=== PATIENT | male | born 1965 | race Caucasian/White ===

== ENCOUNTER 2017-10-09 20:11 | Observation (INO) | payer BC, OTHER ==
[2017-10-09] MEDS ORDERED: Sodium Chloride 0.9% 2.5 ML Syringe FLUSH PRN (20:19)
[2017-10-09] MEDS ORDERED: Aspirin 81 MG Tab.Chew PO ONE (20:19)
[2017-10-09] MEDS ORDERED: Sodium Chloride 0.9% 10 ML Syringe FLUSH PRN (20:19)
--- NOTE | 2017-10-09 20:22 | EDM.PDOC ---
ED HPI GENERAL MEDICAL PROBLEM - General Chief Complaint: Chest Pain Stated Complaint: CHEST PAIN Time Seen by Provider: 10/09/17 20:13 - History of Present Illness INITIAL COMMENTS - FREE TEXT/NARRATIVE: HISTORY AND PHYSICAL: History of present illness: The patient is a 52-year-old male with no stated cardiac or pulmonary disease and presents with complaints of left midsternal chest discomfort/ache and shortness of breath for the last 2 days. The patient says that it has been on and off yesterday and was more consistent today which is why he came. The patient works in the [employer] and says he was much more short of breath than usual with any activity and started having this chest discomfort with it. At its worse he rated the discomfort as a 7/10 and currently in the ED it as a 4/ 10. The pain radiates to his mid back but does not go down his arm or to his jaw. There is no nausea or abdominal pain or diaphoresis associated with it. He doesn't get lightheaded or dizzy. The patient says that he was able to sleep last night relatively well and did not wake up with the chest pain or shortness of breath. Patient has a history of tobacco use and quit 2 years ago. Patient has no significant family history and no drug history. Patient has no leg pain or swelling and says that he does activities in the oil [employer] all the time without chest pain or shortness of breath and this is all new. He has no upper respiratory complaints such as runny nose or cough. He's been eating and drinking normally. Patient took some Motrin earlier this morning but no other medications prior to coming here. Patient says he does do a lot of sitting with his job but has not noticed any leg swelling. Review of systems: As per history of present illness and below otherwise all systems reviewed and negative. Past medical history: As per history of present illness and as reviewed below otherwise noncontributory. Surgical history: As per history of present illness and as reviewed below otherwise noncontributory. Social history: No reported history of drug or alcohol abuse. Family history: As per history of present illness and as reviewed below otherwise noncontributory. Physical exam: Gen.: Well-developed well-nourished man nontoxic and speaking clearly and easily in the ED. Vital signs have been reviewed by me HEENT: Atraumatic, normocephalic, pupils reactive, negative for conjunctival pallor or scleral icterus, mucous membranes moist, throat clear, neck supple, nontender, trachea midline. Lungs: Clear to auscultation, breath sounds equal bilaterally, chest nontender. Heart: S1S2, regular, negative for clicks, rubs, or JVD. Abdomen: Soft, nondistended, nontender. Negative for masses or hepatosplenomegaly. NABS Pelvis: Stable nontender. Genitourinary: Deferred. Rectal: Deferred. Extremities: Atraumatic, negative for cords or calf pain. Neurovascular unremarkable. No pedal edema or leg asymmetry Neuro: Awake, alert, oriented. Cranial nerves II through XII unremarkable. Cerebellum unremarkable. Motor and sensory unremarkable throughout. Exam nonfocal. Diagnostics: EKG chest x-ray CBC CMP lipase INR troponin d-dimer Therapeutics: IV O2 monitor sublingual nitroglycerin and aspirin Nitropaste Toradol After 3 sublingual nitroglycerin the patient says that the chest pain is pretty much gone but he still has some back ache which comes and goes. His d-dimer is positive so we will proceed to do a CTA of the chest to rule out PE as well as dissection. We will place Nitropaste and give Toradol for the back pain. 2125: Case was discussed with Dr. Schmitt who was aware of this patient and that he will be going for CTA of the chest. He still accepts the patient for observation admission pending the result of that study. 2139: Dr. Schmitt has seen the patient and feels that he is wheezing now and has ordered some meds for that. CTA of the chest reveals no evidence of PE or dissection and these results of been conveyed to the patient. We'll transfer to the floor. Impression: Chest pain Definitive disposition and diagnosis as appropriate pending reevaluation and review of above. chest Pain Score (Numeric/FACES): 3 upper back Pain Score (Numeric/FACES): 7 - Related Data Allergies Allergy/AdvReac Type Severity Reaction Status Date / Time No Known Allergies Allergy Verified 10/09/17 20:19 Home Meds: Home Meds . [No Known Home Meds] 10/09/17 [History] ED ROS GENERAL - Review of Systems Review Of Systems: ROS reveals no pertinent complaints other than HPI. ED EXAM, GENERAL - Physical Exam Exam: See Below (See dictation) Course - Vital Signs Last Recorded V/S: Last Vital Signs Temp 36.3 C 10/09/17 20:11 Pulse 86 10/09/17 22:45 Resp 16 10/09/17 22:45 BP 99/68 10/09/17 22:45 Pulse Ox 96 10/09/17 22:45 - Orders/Labs/Meds Orders: Active Orders 24 hr Category Date Time Status Patient Status [ADT] Routine ADT 10/09/17 21:57 Active Antiembolic Devices [RC] PER UNIT ROUTINE Care 10/09/17 21:59 Active Cardiac Monitoring [RC] . DIRECTED Care 10/09/17 20:18 Active EKG Documentation Completion [RC] STAT Care 10/09/17 20:18 Active Oxygen Therapy [RC] PRN Care 10/09/17 21:57 Active Oxygen Therapy, ED [RC] ASDIRECTED Care 10/09/17 20:18 Active Pulse Oximetry [RC] ASDIRECTED Care 10/09/17 20:18 Active RT Aerosol Therapy [RC] ASDIRECTED Care 10/09/17 21:42 Active RT Aerosol Therapy [RC] ASDIRECTED Care 10/09/17 22:00 Active VTE/DVT Education [RC] PER UNIT ROUTINE Care 10/09/17 21:57 Active Vital Signs [RC] Q4H Care 10/09/17 21:57 Active Regular Diet [DIET] Diet 10/09/17 Dinner Active Ang Chest [CT] Stat Exams 10/09/17 21:12 Taken Chest 1V Frontal [CR] Stat Exams 10/09/17 20:19 Taken LIPID PANEL [CHEM] Routine Lab 10/10/17 03:00 Ordered TROPONIN I [CHEM] Q6H Lab 10/10/17 03:00 Ordered TROPONIN I [CHEM] Q6H Lab 10/10/17 09:00 Ordered Acetaminophen [Tylenol] Med 10/09/17 21:57 Active 650 mg PO Q4H PRN Albuterol/Ipratropium [DuoNeb 3.0-0.5 MG/3 ML] Med 10/09/17 22:00 Active 3 ml NEB Q4HRRT Aspirin Med 10/10/17 09:00 Active 81 mg PO DAILY Morphine Med 10/09/17 21:57 Active 4 mg IVPUSH Q2H PRN Sodium Chloride 0.9% [Saline Flush] Med 10/09/17 20:19 Active 10 ml FLUSH ASDIRECTED PRN Sodium Chloride 0.9% [Saline Flush] Med 10/09/17 20:19 Active 2.5 ml FLUSH ASDIRECTED PRN methylPREDNISolone Sod Succ [Solu-MEDROL] Med 10/10/17 04:00 Active 125 mg IVPUSH Q6H Saline Lock Insert [OM.PC] Stat Oth 10/09/17 20:18 Ordered Sequential Compression Device [OM.PC] Per Unit Routine Oth 10/09/17 21:58 Ordered Resuscitation Status Routine Resus Stat 10/09/17 21:57 Ordered Medication Orders Acetaminophen (Tylenol) 650 mg PO Q4H PRN PRN Reason: Pain (Mild 1-3)/fever Albuterol/Ipratropium (Duoneb 3.0-0.5 Mg/3 Ml) 3 ml NEB Q4HRRT INDIRA Last Admin: 10/09/17 22:15 Dose: 3 ml Aspirin (Aspirin) 81 mg PO DAILY INDIRA Methylprednisolone Sodium Succinate (Solu-Medrol) 125 mg IVPUSH Q6H INDIRA Morphine Sulfate (Morphine) 4 mg IVPUSH Q2H PRN PRN Reason: Pain (severe 7-10) Stop: 10/10/17 21:59 Sodium Chloride (Saline Flush) 10 ml FLUSH ASDIRECTED PRN PRN Reason: Keep Vein Open Sodium Chloride (Saline Flush) 2.5 ml FLUSH ASDIRECTED PRN PRN Reason: Keep Vein Open Labs: Laboratory Tests 10/09/17 10/09/17 10/09/17 Range/Units 20:38 20:38 20:38 WBC 7.81 (4.0-11.0) K/uL RBC 4.43 L (4.50-5.90) M/uL Hgb 15.1 (13.0-17.0) g/dL Hct 41.6 (38.0-50.0) % MCV 93.9 (80.0-98.0) fL MCH 34.1 H (27.0-32.0) pg MCHC 36.3 (31.0-37.0) g/dL RDW Std Deviation 44.1 (28.0-62.0) fl RDW Coeff of Jessie 13 (11.0-15.0) % Plt Count 283 (150-400) K/uL MPV 9.10 (7.40-12.00) fL Neut % (Auto) 53.6 (48.0-80.0) % Lymph % (Auto) 32.4 (16.0-40.0) % Reeves % (Auto) 10.2 (0.0-15.0) % Eos % (Auto) 3.3 (0.0-7.0) % Baso % (Auto) 0.5 (0.0-1.5) % Neut # (Auto) 4.2 (1.4-5.7) K/uL Lymph # (Auto) 2.5 H (0.6-2.4) K/uL Reeves # (Auto) 0.8 (0.0-0.8) K/uL Eos # (Auto) 0.3 (0.0-0.7) K/uL Baso # (Auto) 0.0 (0.0-0.1) K/uL Nucleated RBC % 0.0 /100WBC Nucleated RBCs # 0 K/uL INR 0.96 (0.86-1.11) D-Dimer, Quantitative (0.0-0.52) mg/LFEU Sodium 140 (136-146) mmol/L Potassium 3.7 (3.5-5.1) mmol/L Chloride 109 (98-110) mmol/L Carbon Dioxide 20 L (21-31) mmol/L BUN 14 (6.0-23.0) mg/dL Creatinine 1.0 (0.6-1.5) mg/dL Est Cr Clr Drug Dosing 82.65 mL/min Estimated GFR (MDRD) > 60.0 ml/min Glucose 106 (60-110) mg/dL Calcium 8.7 L (8.8-10.8) mg/dL Total Bilirubin 0.3 (0.1-1.5) mg/dL AST 27 (5-40) IU/L ALT 35 (8-54) IU/L Alkaline Phosphatase 85 (40-150) Troponin I < 0.10 (0.0-0.29) NG/ML Total Protein 6.7 (6.0-8.0) g/dL Albumin 4.0 (3.5-5.0) g/dL Globulin 2.7 (2.0-3.5) g/dL Albumin/Globulin Ratio 1.5 (1.3-2.8) Lipase 19 (7-80) U/L 10/09/17 Range/Units 20:38 WBC (4.0-11.0) K/uL RBC (4.50-5.90) M/uL Hgb (13.0-17.0) g/dL Hct (38.0-50.0) % MCV (80.0-98.0) fL MCH (27.0-32.0) pg MCHC (31.0-37.0) g/dL RDW Std Deviation (28.0-62.0) fl RDW Coeff of Jessie (11.0-15.0) % Plt Count (150-400) K/uL MPV (7.40-12.00) fL Neut % (Auto) (48.0-80.0) % Lymph % (Auto) (16.0-40.0) % Reeves % (Auto) (0.0-15.0) % Eos % (Auto) (0.0-7.0) % Baso % (Auto) (0.0-1.5) % Neut # (Auto) (1.4-5.7) K/uL Lymph # (Auto) (0.6-2.4) K/uL Reeves # (Auto) (0.0-0.8) K/uL Eos # (Auto) (0.0-0.7) K/uL Baso # (Auto) (0.0-0.1) K/uL Nucleated RBC % /100WBC Nucleated RBCs # K/uL INR (0.86-1.11) D-Dimer, Quantitative 0.59 H (0.0-0.52) mg/LFEU Sodium (136-146) mmol/L Potassium (3.5-5.1) mmol/L Chloride (98-110) mmol/L Carbon Dioxide (21-31) mmol/L BUN (6.0-23.0) mg/dL Creatinine (0.6-1.5) mg/dL Est Cr Clr Drug Dosing mL/min Estimated GFR (MDRD) ml/min Glucose (60-110) mg/dL Calcium (8.8-10.8) mg/dL Total Bilirubin (0.1-1.5) mg/dL AST (5-40) IU/L ALT (8-54) IU/L Alkaline Phosphatase (40-150) Troponin I (0.0-0.29) NG/ML Total Protein (6.0-8.0) g/dL Albumin (3.5-5.0) g/dL Globulin (2.0-3.5) g/dL Albumin/Globulin Ratio (1.3-2.8) Lipase (7-80) U/L Meds: Medications Generic Name Dose Route Start Last Admin Trade Name Sean PRN Reason Stop Dose Admin Acetaminophen 650 mg 10/09/17 21:57 Tylenol PO Q4H PRN Pain (Mild 1-3)/fever Albuterol/Ipratropium 3 ml 10/09/17 22:00 10/09/17 22:15 Duoneb 3.0-0.5 Mg/3 Ml NEB 3 ml Q4HRRT INDIRA Administration Aspirin 81 mg 10/10/17 09:00 Aspirin PO DAILY INDIRA Methylprednisolone Sodium Succinate 125 mg 10/10/17 04:00 Solu-Medrol IVPUSH Q6H INDIRA Morphine Sulfate 4 mg 10/09/17 21:57 Morphine IVPUSH 10/10/17 21:59 Q2H PRN Pain (severe 7-10) Sodium Chloride 10 ml 10/09/17 20:19 Saline Flush FLUSH ASDIRECTED PRN Keep Vein Open Sodium Chloride 2.5 ml 10/09/17 20:19 Saline Flush FLUSH ASDIRECTED PRN Keep Vein Open Discontinued Medications Generic Name Dose Route Start Last Admin Trade Name Sean PRN Reason Stop Dose Admin Albuterol/Ipratropium 3 ml 10/09/17 21:42 10/09/17 22:32 Duoneb 3.0-0.5 Mg/3 Ml NEB 10/09/17 21:43 Not Given ONETIME ONE Aspirin 324 mg 10/09/17 20:19 10/09/17 20:42 Aspirin PO 10/09/17 20:20 324 mg ONETIME ONE Administration Sodium Chloride 1,000 mls @ 999 mls/hr 10/09/17 20:43 10/09/17 20:43 Normal Saline IV 999 mls/hr ASDIRECTED INDIRA Administration Sodium Chloride 1,000 mls @ 999 mls/hr 10/09/17 21:45 10/09/17 21:34 Normal Saline IV 999 mls/hr ASDIRECTED INDIRA Administration Ketorolac Tromethamine 30 mg 10/09/17 21:12 10/09/17 21:32 Toradol IVPUSH 10/09/17 21:13 30 mg ONETIME ONE Administration Methylprednisolone Sodium Succinate 125 mg 10/09/17 21:42 10/09/17 22:32 Solu-Medrol IVPUSH 10/09/17 21:43 125 mg ONETIME ONE Administration Nitroglycerin 0.4 mg 10/09/17 20:30 10/09/17 20:56 Nitrostat SL 10/09/17 20:41 0.4 mg Q5M INDIRA Administration Nitroglycerin 0.5 gm 10/09/17 21:12 10/09/17 21:33 Nitro-Bid 2% TOP 10/09/17 21:13 0.5 gm ONETIME ONE Administration Departure - Departure Time of Disposition: 23:10 Disposition: Refer to Observation Condition: Good Clinical Impression: Chest pain Qualifiers: Chest pain type: unspecified Qualified Code(s): R07.9 - Chest pain, unspecified - Discharge Information Forms: ED Department Discharge - My Orders Last 24 Hours: My Active Orders 10/09/17 20:18 Cardiac Monitoring [RC] . DIRECTED EKG Documentation Completion [RC] STAT Oxygen Therapy, ED [RC] ASDIRECTED Pulse Oximetry [RC] ASDIRECTED Saline Lock Insert [OM.PC] Stat 10/09/17 20:19 Chest 1V Frontal [CR] Stat Sodium Chloride 0.9% [Saline Flush] 10 ml FLUSH ASDIRECTED PRN Sodium Chloride 0.9% [Saline Flush] 2.5 ml FLUSH ASDIRECTED PRN 10/09/17 21:12 Ang Chest [CT] Stat - Assessment/Plan Last 24 Hours: My Active Orders 10/09/17 20:18 Cardiac Monitoring [RC] . DIRECTED EKG Documentation Completion [RC] STAT Oxygen Therapy, ED [RC] ASDIRECTED Pulse Oximetry [RC] ASDIRECTED Saline Lock Insert [OM.PC] Stat 10/09/17 20:19 Chest 1V Frontal [CR] Stat Sodium Chloride 0.9% [Saline Flush] 10 ml FLUSH ASDIRECTED PRN Sodium Chloride 0.9% [Saline Flush] 2.5 ml FLUSH ASDIRECTED PRN 10/09/17 21:12 Ang Chest [CT] Stat
[2017-10-09] MEDS: Nitroglycerin 0.4 MG Tab.SL SL SCH ×3 (20:42→20:56)
[2017-10-09] MEDS ORDERED: Sodium Chloride 0.9% 1,000 ML IV SCH ×2 (20:43→21:45)
[2017-10-09 21:11] LABS: CHLORIDE,CL 109 mmol/L (98-110); SODIUM,NA 140 mmol/L (136-146)
[2017-10-09] MEDS ORDERED: Ketorolac 30 MG/ML SDV IVPUSH ONE (21:12)
[2017-10-09] MEDS ORDERED: Nitroglycerin 2% Oint 1 GM UD Packet TOP ONE (21:12)
[2017-10-09] MEDS ORDERED: Albuterol/Ipratropium 3.0-0.5 MG/3 ML Neb Soln NEB ONE (21:42)
[2017-10-09] MEDS ORDERED: methylPREDNISolone Sodium Succinate 125 MG/2 ML SDV IVPUSH ONE (21:42)
--- NOTE | 2017-10-09 21:54 | PCM.HP ---
H&P History of Present Illness - General Date of Service: 10/09/17 Source of Information: Patient, Provider - History of Present Illness Initial Comments - Free Text/Narative: He presented to the ED today with a history of chest pain and dyspnea since yesterday. He states that he occasionally has dyspnea in the past. He quit smoking cigarettes two years ago but does use "vapes" on a daily basis. He has no chest pain now. chest Pain Score (Numeric/FACES): 3 upper back Pain Score (Numeric/FACES): 7 - Related Data Allergies/Adverse Reactions: Allergies Allergy/AdvReac Type Severity Reaction Status Date / Time No Known Allergies Allergy Verified 10/09/17 20:19 Home Medications: Home Meds . [No Known Home Meds] 10/09/17 [History] Past Medical History - Past Health History Medical/Surgical History: Denies Medical/Surgical History HEENT History: Denies: Cataract, Glaucoma, Macular Degeneration, Sinusitis Cardiovascular History: Denies: Afib, Aneurysm, Angina, CAD, Cardiomyopathy, Heart Failure, Heart Murmur, High Cholesterol, Hypertension, NC Respiratory History: Reports: Other (See Below) (no known prior history of asthma or copd). Denies: COPD, Pulmonary Fibrosis Gastrointestinal History: Denies: Cirrhosis Genitourinary History: Denies: Chronic Renal Insuffiency Musculoskeletal History: Denies: Amputation, Connective Tissue Disease, Fibromyalgia, Gout, Muscular Dystrophy, RA, SLE Neurological History: Denies: Cerebral Palsy, CVA, MS, Parkinson's, Reflex Sympathetic Dystrophy, Seizure, Speech Problems, TIA Psychiatric History: Denies: Addiction, Anxiety, Dementia, Depression, Hallucinations, Schizophrenia Endocrine/Metabolic History: Denies: Huerfano's Disease, Diabetes, Type I, Diabetes, Type II, Hyperthyroidism Hematologic History: Denies: Anemia, Anticoagulation Therapy, Bleeding Disorder , Hemochromatosis Immunologic History: Denies: AIDS, HIV, Immunosuppression Oncologic (Cancer) History: Reports: None Dermatologic History: Denies: Angiodema, Cellulitis, Melanoma - Past Surgical History Head Surgeries/Procedures: Reports: None Social & Family History - Family History Family Medical History: Noncontributory - Tobacco Use Smoking Status *Q: Former Smoker Other Tobacco Use Within Last Twelve Months: he quit smoking two years ago - Caffeine Use Caffeine Use: Reports: Coffee - Alcohol Use Alcohol Use Comment: no regular alcohol use - Recreational Drug Use Recreational Drug Use: No H&P Review of Systems - Review of Systems: Review Of Systems: See Below General: Denies: Fever, Chills HEENT: Denies: Sinus Congestion, Sore Throat, Vertigo Pulmonary: Reports: Shortness of Breath, Wheezing, Cough. Denies: Sputum, Hemoptysis Cardiovascular: Reports: Chest Pain. Denies: Edema, Syncope, Blood Pressure Problem Gastrointestinal: Denies: Abdominal Pain, Black Stool, Bloody Stool, Hematochezia, Melena, Nausea, Stool Incontinence, Vomiting Genitourinary: Denies: Dysuria, Frequency, Burning, Pain, Hematuria Musculoskeletal: Denies: Neck Pain, Muscle Stiffness Skin: Denies: Cyanosis Psychiatric: Denies: Confusion, Depression Hematologic/Lymphatic: Denies: Anemia Exam - Exam Exam: See Below - Vital Signs Vital Signs: Last Vital Signs Temp 97.3 F 10/09/17 20:11 Pulse 97 10/09/17 20:55 Resp 18 10/09/17 20:55 BP 104/71 10/09/17 20:56 Pulse Ox 96 10/09/17 20:55 Weight: 93.6 kg - Exam General: Alert, Oriented, Cooperative HEENT: Conjunctiva Clear, EOMI, Mucosa Moist & [place] Neck: Supple, Trachea Midline Lungs: Wheezing, Other (marked prolongation of expiration) Cardiovascular: Regular Rate, Regular Rhythm. No: Irregular Rhythm, Systolic Murmur, Diastolic Murmur GI/Abdominal Exam: Soft, Non-Tender (Male) Exam: Deferred Rectal (Males) Exam: Deferred Extremities: No: Pedal Edema Skin: Warm, Dry Neurological: Cranial Nerves Intact, Normal Speech Neuro Extensive - Motor, Sensory, Reflexes: No: Facial palsy (L), Facial Palsy ( R) - Patient Data Lab Results Last 24 hrs: Laboratory Results - last 24 hr 10/09/17 10/09/17 10/09/17 Range/Units 20:38 20:38 20:38 WBC 7.81 (4.0-11.0) K/uL RBC 4.43 L (4.50-5.90) M/uL Hgb 15.1 (13.0-17.0) g/dL Hct 41.6 (38.0-50.0) % MCV 93.9 (80.0-98.0) fL MCH 34.1 H (27.0-32.0) pg MCHC 36.3 (31.0-37.0) g/dL RDW Std Deviation 44.1 (28.0-62.0) fl RDW Coeff of Jessie 13 (11.0-15.0) % Plt Count 283 (150-400) K/uL MPV 9.10 (7.40-12.00) fL Neut % (Auto) 53.6 (48.0-80.0) % Lymph % (Auto) 32.4 (16.0-40.0) % Beaver % (Auto) 10.2 (0.0-15.0) % Eos % (Auto) 3.3 (0.0-7.0) % Baso % (Auto) 0.5 (0.0-1.5) % Neut # (Auto) 4.2 (1.4-5.7) K/uL Lymph # (Auto) 2.5 H (0.6-2.4) K/uL [place]aver # (Auto) 0.8 (0.0-0.8) K/uL Eos # (Auto) 0.3 (0.0-0.7) K/uL Baso # (Auto) 0.0 (0.0-0.1) K/uL Nucleated RBC % 0.0 /100WBC Nucleated RBCs # 0 K/uL INR 0.96 (0.86-1.11) D-Dimer, Quantitative (0.0-0.52) mg/LFEU Sodium 140 (136-146) mmol/L Potassium 3.7 (3.5-5.1) mmol/L Chloride 109 (98-110) mmol/L Carbon Dioxide 20 L (21-31) mmol/L BUN 14 (6.0-23.0) mg/dL Creatinine 1.0 (0.6-1.5) mg/dL Est Cr Clr Drug Dosing 82.65 mL/min Estimated GFR (MDRD) > 60.0 ml/min Glucose 106 (60-110) mg/dL Calcium 8.7 L (8.8-10.8) mg/dL Total Bilirubin 0.3 (0.1-1.5) mg/dL AST 27 (5-40) IU/L ALT 35 (8-54) IU/L Alkaline Phosphatase 85 (40-150) Troponin I < 0.10 (0.0-0.29) NG/ML Total Protein 6.7 (6.0-8.0) g/dL Albumin 4.0 (3.5-5.0) g/dL Globulin 2.7 (2.0-3.5) g/dL Albumin/Globulin Ratio 1.5 (1.3-2.8) Lipase 19 (7-80) U/L 10/09/ Range/Units 20:38 WBC (4.0-11.0) K/uL RBC (4.50-5.90) M/uL Hgb (13.0-17.0) g/dL Hct (38.0-50.0) % MCV (80.0-98.0) fL MCH (27.0-32.0) pg MCHC (31.0-37.0) g/dL RDW Std Deviation (28.0-62.0) fl RDW Coeff of Jessie (11.0-15.0) % Plt Count (150-400) K/uL MPV (7.40-12.00) fL Neut % (Auto) (48.0-80.0) % Lymph % (Auto) (16.0-40.0) % Beaver % (Auto) (0.0-15.0) % Eos % (Auto) (0.0-7.0) % Baso % (Auto) (0.0-1.5) % Neut # (Auto) (1.4-5.7) K/uL Lymph # (Auto) (0.6-2.4) K/uL Beaver # (Auto) (0.0-0.8) K/uL Eos # (Auto) (0.0-0.7) K/uL Baso # (Auto) (0.0-0.1) K/uL Nucleated RBC % /100WBC Nucleated RBCs # K/uL INR (0.86-1.11) D-Dimer, Quantitative 0.59 H (0.0-0.52) mg/LFEU Sodium (136-146) mmol/L Potassium (3.5-5.1) mmol/L Chloride (98-110) mmol/L Carbon Dioxide (21-31) mmol/L BUN (6.0-23.0) mg/dL Creatinine (0.6-1.5) mg/dL Est Cr Clr Drug Dosing mL/min Estimated GFR (MDRD) ml/min Glucose (60-110) mg/dL Calcium (8.8-10.8) mg/dL Total Bilirubin (0.1-1.5) mg/dL AST (5-40) IU/L ALT (8-54) IU/L Alkaline Phosphatase (40-150) Troponin I (0.0-0.29) NG/ML Total Protein (6.0-8.0) g/dL Albumin (3.5-5.0) g/dL Globulin (2.0-3.5) g/dL Albumin/Globulin Ratio (1.3-2.8) Lipase (7-80) U/L Result Diagrams: 10/09/17 20:38 10/09/17 20:38 *Q Meaningful Use (ADM) - VTE *Q VTE Criteria *Q: - Stroke *Q Stroke Criteria *Q: - AMI *Q AMI Criteria *Q: - Problem List (1) Bronchospasm, acute SNOMED Code(s): 56981071774283 ICD Code: J98.01 - ACUTE BRONCHOSPASM Status: Acute (2) Chest pain SNOMED Code(s): 87536262 ICD Code: R07.9 - CHEST PAIN, UNSPECIFIED Status: Acute Problem List Initiated/Reviewed/Updated: Yes Orders Last 24hrs: Active Orders 24 hr Category Date Time Status Cardiac Monitoring [RC] . DIRECTED Care 10/09/17 20:18 Active EKG Documentation Completion [RC] STAT Care 10/09/17 20:18 Active Oxygen Therapy, ED [RC] ASDIRECTED Care 10/09/17 20:18 Active Pulse Oximetry [RC] ASDIRECTED Care 10/09/17 20:18 Active RT Aerosol Therapy [RC] ASDIRECTED Care 10/09/17 21:42 Active Ang Chest [CT] Stat Exams 10/09/17 21:12 Ordered Chest 1V Frontal [CR] Stat Exams 10/09/17 20:19 Taken Sodium Chloride 0.9% [Normal Saline] 1,000 ml Med 10/09/17 20:43 Active IV ASDIRECTED Sodium Chloride 0.9% [Normal Saline] 1,000 ml Med 10/09/17 21:45 Active IV ASDIRECTED Sodium Chloride 0.9% [Saline Flush] Med 10/09/17 20:19 Active 10 ml FLUSH ASDIRECTED PRN Sodium Chloride 0.9% [Saline Flush] Med 10/09/17 20:19 Active 2.5 ml FLUSH ASDIRECTED PRN Saline Lock Insert [OM.PC] Stat Oth 10/09/17 20:18 Ordered Medication Orders Sodium Chloride (Normal Saline) 1,000 mls @ 999 mls/hr IV ASDIRECTED INDIRA Last Admin: 10/09/17 20:43 Dose: 999 mls/hr Sodium Chloride (Normal Saline) 1,000 mls @ 999 mls/hr IV ASDIRECTED INDIRA Last Admin: 10/09/17 21:34 Dose: 999 mls/hr Sodium Chloride (Saline Flush) 10 ml FLUSH ASDIRECTED PRN PRN Reason: Keep Vein Open Sodium Chloride (Saline Flush) 2.5 ml FLUSH ASDIRECTED PRN PRN Reason: Keep Vein Open Assessment/Plan Comment:: 10/09/2017 His CXR is normal his EKG shows no evidence of acute ischemia I suspect that his chest pain is related to bronchospasm and underlying asthma will observe and get troponins. See orders. anticipate discharge tomorrow. Dariel Schmitt MD
[2017-10-09] MEDS ORDERED: Morphine 10 MG/ML Syringe IVPUSH PRN (21:57)
[2017-10-09] MEDS ORDERED: Acetaminophen 325 MG Tab PO PRN (21:57)
[2017-10-09] MEDS: Albuterol/Ipratropium 3.0-0.5 MG/3 ML Neb Soln NEB SCH (22:15)
[2017-10-09] MEDS ORDERED: Iopamidol 755 MG/ML 500 ML Multipack Bottle IVPUSH STA (23:37)
[2017-10-10] MEDS: Albuterol/Ipratropium 3.0-0.5 MG/3 ML Neb Soln NEB SCH ×3 (02:44→10:23)
[2017-10-10] MEDS: methylPREDNISolone Sodium Succinate 125 MG/2 ML SDV IVPUSH SCH ×2 (04:52→09:33)
[2017-10-10] MEDS ORDERED: Aspirin 81 MG Tab.Chew PO SCH (09:00)
--- NOTE | 2017-10-10 11:31 | PCM.DCSUM1 ---
Discharge Summary - Hospital Course Free Text/Narrative:: Admission date: 10/09/2017 Discharge date: 10/10/2017 Admission diagnosis: #1. Bronchospasm #2. ACS rule out #3. Chest pain #4. History of vaping Discharge diagnosis: #1. Bronchospasm - symptoms improved #2. ACS rule out - no ACS #3. chest pain - resolved #4. History of vaping Hospital course: 52 year old male with a history of asthma and smoking that presented to the ER on 10/09 evening complaining of dull chest pain and difficulty breathing. He was admitted for an ACS rule out and was placed in observation. The patient did well overnight with no further episodes. His telemetry was unremarkable, troponin x3 was negative. It was believed givent he clinical picture that this was likely a bronchospasm rather than a cardiac etiology. DuoNebs as per the patient helped a lot with his breathing. He told me that he doesnt take any medications at home. He feels that this episode occured secondary to vaping. He tells me that hes going to quit that as well now. He started this to quit cigarettes which he did 2 years ago. He tells me that hes going back to [place] where hes from so he'll follow up with a PCP there. Regardless, an appointment was made for him here if he chooses to stay. Follow up: Dr. Guadalupe, 1 week Medications: Prednisone 40mg PO x5 days, 0 refills Return precautions as discussed - Discharge Data Discharge Date: 10/10/17 Discharge Disposition: Home, Self-Care 01 Condition: Good - Patient Instructions Diet: Regular Diet as Tolerated Driving: May Drive Today Showering/Bathing: May Shower Notify Provider of: Fever, Increased Pain, Nausea and/or Vomiting - Discharge Plan Prescriptions/Med Rec: Prednisone [IMW: predniSONE] 40 mg PO WITHBREAKFAST 5 Days #5 tab Home Medications: Home Meds Prednisone [IMW: predniSONE] 40 mg PO WITHBREAKFAST 5 Days #5 tab 10/10/17 [Rx] Patient Handouts: Bronchospasm, Adult, [id number], Asthma, Adult, Easy-to- Read, Prednisone tablets - Discharge Summary/Plan Comment DC Time >30 min.: No Discharge Summary/Plan Comment: Admission date: 10/09/2017 Discharge date: 10/10/2017 Admission diagnosis: #1. Bronchospasm #2. ACS rule out #3. Chest pain #4. History of vaping Discharge diagnosis: #1. Bronchospasm - symptoms improved #2. ACS rule out - no ACS #3. chest pain - resolved #4. History of vaping Hospital course: 52 year old male with a history of asthma and smoking that presented to the ER on 10/09 evening complaining of dull chest pain and difficulty breathing. He was admitted for an ACS rule out and was placed in observation. The patient did well overnight with no further episodes. His telemetry was unremarkable, troponin x3 was negative. It was believed givent he clinical picture that this was likely a bronchospasm rather than a cardiac etiology. DuoNebs as per the patient helped a lot with his breathing. He told me that he doesnt take any medications at home. He feels that this episode occured secondary to vaping. He tells me that hes going to quit that as well now. He started this to quit cigarettes which he did 2 years ago. He tells me that hes going back to [place] where hes from so he'll follow up with a PCP there. Regardless, an appointment was made for him here if he chooses to stay. Follow up: Dr. Guadalupe, 1 week Medications: Prednisone 40mg PO x5 days, 0 refills Return precautions as discussed - Patient Data Vitals - Most Recent: Last Vital Signs Temp 36.8 C 10/10/17 08:00 Pulse 110 H 10/10/17 08:00 Resp 16 10/10/17 08:00 BP 110/59 L 10/10/17 08:00 Pulse Ox 93 L 10/10/17 08:00 Weight - Most Recent: 91.943 kg I&O - Last 24 hours: Intake & Output 10/09/17 10/10/17 10/10/17 22:59 06:59 14:59 Intake Total 75 960 Output Total 250 500 Balance -175 460 Lab Results - Last 24 hrs: Laboratory Results - last 24 hr 10/10/17 10/10/17 Range/Units 02:56 08:53 Troponin I < 0.10 < 0.10 (0.0-0.29) NG/ML Triglycerides 46 (10-190) mg/dL Cholesterol 140 (131-240) mg/dL LDL Cholesterol, Calc 97 (60-180) mg/dL VLDL Cholesterol 9 (5-55) mg/dL HDL Cholesterol 34 L (40-80) mg/dL Cholesterol/HDL Ratio 4.1 (3.3-6.0) Med Orders - Current: Current Medications Discontinued Medications Acetaminophen (Tylenol) 650 mg PO Q4H PRN PRN Reason: Pain (Mild 1-3)/fever Albuterol/Ipratropium (Duoneb 3.0-0.5 Mg/3 Ml) 3 ml NEB ONETIME ONE Stop: 10/09/17 21:43 Last Admin: 10/09/17 22:32 Dose: Not Given Albuterol/Ipratropium (Duoneb 3.0-0.5 Mg/3 Ml) 3 ml NEB Q4HRRT [facility] Last Admin: 10/10/17 10:23 Dose: 3 ml Aspirin (Aspirin) 324 mg PO ONETIME ONE Stop: 10/09/17 20:20 Last Admin: 10/09/17 20:42 Dose: 324 mg Aspirin (Aspirin) 81 mg PO DAILY [facility] Last Admin: 10/10/17 08:25 Dose: 81 mg Sodium Chloride (Normal Saline) 1,000 mls @ 999 mls/hr IV ASDIRECTED [facility] Last Admin: 10/09/17 20:43 Dose: 999 mls/hr Sodium Chloride (Normal Saline) 1,000 mls @ 999 mls/hr IV ASDIRECTED [facility] Last Admin: 10/09/17 21:34 Dose: 999 mls/hr Iopamidol (Isovue Multipack-370 (76%)) 50 ml IVPUSH ONETIME STA Stop: 10/09/17 23:38 Ketorolac Tromethamine (Toradol) 30 mg IVPUSH ONETIME ONE Stop: 10/09/17 21:13 Last Admin: 10/09/17 21:32 Dose: 30 mg Methylprednisolone Sodium Succinate (Solu-Medrol) 125 mg IVPUSH ONETIME ONE Stop: 10/09/17 21:43 Last Admin: 10/09/17 22:32 Dose: 125 mg Methylprednisolone Sodium Succinate (Solu-Medrol) 125 mg IVPUSH Q6H [facility] Last Admin: 10/10/17 09:33 Dose: 125 mg Morphine Sulfate (Morphine) 4 mg IVPUSH Q2H PRN PRN Reason: Pain (severe 7-10) Stop: 10/10/17 21:59 Nitroglycerin (Nitrostat) 0.4 mg SL Q5M INDIRA Stop: 10/09/17 20:41 Last Admin: 10/09/17 20:56 Dose: 0.4 mg Nitroglycerin (Nitro-Bid 2%) 0.5 gm TOP ONETIME ONE Stop: 10/09/17 21:13 Last Admin: 10/09/17 21:33 Dose: 0.5 gm Sodium Chloride (Saline Flush) 10 ml FLUSH ASDIRECTED PRN PRN Reason: Keep Vein Open Sodium Chloride (Saline Flush) 2.5 ml FLUSH ASDIRECTED PRN PRN Reason: Keep Vein Open Last Admin: 10/10/17 08:26 Dose: 2.5 ml *Q Meaningful Use (DIS) - VTE *Q VTE Criteria *Q: - Stroke *Q Stroke Criteria *Q: - AMI *Q AMI Criteria *Q:
--- NOTE | 2017-10-10 14:11 | CR ---
EXAM DATE: 10/09/17 PATIENT'S AGE: 52 Patient: TORY MACKENZIE Facility: [place], [place] Site . Site : 1965 Study: XRay Chest [id number] 9:17:14 PM Ordering Physician: Valentin Villatoro Final Report: Indication: Chest pain Technique: Chest 1 view Comparison: None Findings/Impression: Cardiovascular and mediastinum: Normal cardiac size. Mild left hilar prominence could be related to vasculature. Lungs and pleural space: Lungs are clear. No sign of infiltrate or mass. No sign of pleural effusion. No pneumothorax. Bones and soft tissues: No significant findings. Dictated by Roque Hess MD @ 10/09/2017 9:44:50 PM Dictated by: Roque Hess MD @ 10/09/2017 21:44:56 (Electronic Signature) Report Signed by Proxy. [facility]
--- NOTE | 2017-10-10 14:13 | CT ---
EXAM DATE: 10/09/17 PATIENT'S AGE: 52 Patient: TORY MACKENZIE Facility: [place], [place] Site . Site : 1965 Study: CT Chest Angio [id number]/14/[id number] 10:26:42 PM Ordering Physician: Valentin Villatoro Final Report: INDICATION: Shortness of breath TECHNIQUE: CT chest pulmonary angiogram acquired with IV contrast. 100 cc Isovue 370 COMPARISON: None FINDINGS: Cardiovascular structures: Normal vascular enhancement of the pulmonary arteries , no sign of pulmonary embolism. Heart size is normal. No sign of aneurysm or dissection in the thoracic aorta. Mediastinum and treva: Bilateral hilar, paratracheal and subcarinal lymph nodes mostly being up to 1.5 centimeters. Lungs: 5 millimeter round well-circumscribed nodule right middle lobe adjacent to the fissure. Pleura and pericardium: No effusions. Chest wall and axilla: No mass or adenopathy. Bones: No significant findings. Upper abdomen: Unremarkable. IMPRESSION: No pulmonary embolism, aortic dissection, or pneumonia. 5 millimeter subpleural nodule right middle lobe. Dictated by Bridger Bolton MD @ 10/09/2017 11:08:38 PM Dictated by: Bridger Bolton MD @ 10/09/2017 23:08:50 (Electronic Signature) Report Signed by Proxy. [facility]
== END 2017-10-10 10:50 | disposition home or self-care (01) ==
LOC: MW.ED 20:11 → MW.MS 21:57
PROVIDERS: ADMIT Family Medicine; ATTEND Family Medicine
DX: J98.01 Acute bronchospasm (principal); R07.89 Other chest pain; Z87.891 Personal history of nicotine dependence
CPT/HCPCS: 36415; 71010; 71275; 80053; 80061; 83690; 84484; 85025; 85379; 85610; 93005; 94640; 96361; 96374; 96375; 96376; 99285; A9270; G0378; J1885; J2930; J7040; 99284

== ENCOUNTER 2021-08-23 19:55 | Observation (INO) | payer BC ==
[2021-08-23] MEDS ORDERED: Sodium Chloride 0.9% 2.5 ML Syringe FLUSH PRN (20:50)
[2021-08-23] MEDS ORDERED: Sodium Chloride 0.9% 10 ML Syringe FLUSH PRN (20:50)
--- NOTE | 2021-08-23 21:02 | CR ---
INDICATION: Cough and shortness of breath for 5 weeks TECHNIQUE: Chest 2 views. COMPARISON: Chest radiograph October 09, 2017 FINDINGS: Normal cardiac size. 5.2 x 3.4 cm right hilar mass with multiple pulmonary nodules in both lungs measuring up to 2.0 cm in size. Large right pleural effusion. No pneumothorax. No suspicious osseous lesion. IMPRESSION: Right hilar mass may represent a primary lung carcinoma. There are multiple pulmonary nodules throughout the lungs concerning for metastatic disease. Large right pleural effusion. Consider CT chest, abdomen, and pelvis with IV contrast for further evaluation. Dictated by Aniya Diez MD @ 08/23/2021 8:59:59 PM (Electronically Signed)
[2021-08-23 21:55] LABS: BLOOD UREA NITROGEN,BUN 14 mg/dL (7.0-18.0); GLUCOSE RANDOM 109 mg/dL (74-106); LIPASE 58 U/L (73-393)
[2021-08-23 22:08] LABS: CORONAVIRUS COVID-19 NAA NEGATIVE (NEGATIVE); INFLUENZA A NAA NEGATIVE (NEGATIVE); INFLUENZA B NAA NEGATIVE (NEGATIVE)
[2021-08-23 22:17] LABS: CHLORIDE,CL 100 mmol/L (98-107); POTASSIUM,K 3.8 mmol/L (3.5-5.1); SODIUM,NA 136 mmol/L (136-148)
[2021-08-23] MEDS ORDERED: Iopamidol 755 Mg/ML 100 ML Bottle IVPUSH ONE (22:26)
--- NOTE | 2021-08-23 23:26 | CT ---
INDICATION: Chest pain, shortness of breath and abnormal x-ray. TECHNIQUE: CT chest PE was acquired with 100 cc Isovue 370 intravenous contrast. COMPARISON: None. FINDINGS: Heart and vasculature: Contrast opacification of the pulmonary arterial tree is adequate. No sign of pulmonary embolism. No pericardial effusion. Lungs and pleural: Large right pleural effusion with near complete atelectasis of the right lung within the small amount of aerated right lower lobe and right middle lobe note is made of multiple pulmonary masses, largest in the right lower lobe measuring 2.5 centimeters. Within the left lung there are numerable rounded well-demarcated masses measuring up to 2.0 centimeters. Some soft tissue thickening along the right bronchi causing moderate narrowing. Lymph nodes/mediastinum: Subcarinal lymph nodes measure up to 17 millimeters in short axis. Left hilar lymph nodes measure up to 15 millimeters in short axis. Left paratracheal lymph nodes measure up to 13 millimeters in short axis pretracheal lymph nodes measure up to 15 millimeters in short axis. Chest wall: No masses. Upper abdomen: Hepatic cyst measuring 8 millimeters. Indeterminate left adrenal nodule measuring 2.3 centimeters. Bones: Unremarkable for age. IMPRESSION: 1. No evidence of pulmonary embolus. 2. Mediastinal adenopathy and bilateral pulmonary masses consistent with metastatic disease. Primary lesion is not clearly defined although note is made of some infiltrating soft tissue density along the right bronchi and primary lung mass in this region would be a consideration. 3. Large right pleural effusion with near complete atelectasis of the right lung. 4. Indeterminate left adrenal nodule measuring 2.3 centimeters. Please note that all CT scans at this facility use dose modulation, iterative reconstruction, and/or weight-based dosing when appropriate to reduce radiation dose to as low as reasonably achievable. Dictated by Yuniel Armstrong MD @ 08/23/2021 11:25:48 PM (Electronically Signed)
--- NOTE | 2021-08-24 00:40 | EDM.PDOC ---
ED HPI GENERAL MEDICAL PROBLEM - General Chief Complaint: Respiratory Problem Stated Complaint: ONGOING SHORTNESS OF BREATH Time Seen by Provider: 08/23/21 20:44 - History of Present Illness INITIAL COMMENTS - FREE TEXT/NARRATIVE: HISTORY AND PHYSICAL: History of present illness: This is a healthy 55-year-old gentleman with no significant past medical history who presents ER today secondary to progressive shortness of breath over the last several weeks culminating in severe shortness of breath last 1 to 2 days while at work. Patient reports that he had no recent fevers, shakes, chills, nausea, vomiting, diarrhea, dysuria, frequency, urgency. Patient reports an occasional cough. Patient has any hemoptysis or weight loss. Patient reports that he is tobacco free for approximately 6 years now. Patient denies any lower extremity edema or calf tenderness. Patient has any history of DVT or PE in the past. Patient denies any history of hypertension, diabetes, liver, lung, kidney problems. Patient is on anticoagulation therapy. Review of systems: As per history of present illness and below otherwise all systems reviewed and negative. Past medical history: As per history of present illness and as reviewed below otherwise noncontributory. Surgical history: As per history of present illness and as reviewed below otherwise noncontributory. Social history: No reported history of drug abuse. Family history: As per history of present illness and as reviewed below otherwise noncontributory. Physical exam: This patient was seen and evaluated during the 2019 SARS-CoV-2 novel coronavirus pandemic period. Community viral transmission is ongoing at time of this encounter and the emergency department is operating under pandemic response procedures. Constitutional: Patient is oriented to person, place, and time. Appears well- developed and well-nourished. No distress. HEENT: Moist mucous membranes Head: Normocephalic and atraumatic Eyes: Right eye exhibits no discharge. Left eye exhibits no discharge. No scleral icterus Neck: Normal range of motion. No tracheal deviation present. Cardiovascular: Tachycardic rate and regular rhythm. Pulmonary: Effort normal, no respiratory distress. Patient with diminished breath sounds in the entire right lung. Abdominal: No distention Musculoskeletal: Normal range of motion Neurologic: Alert and oriented to person, place and time. Skin: [place], warm and dry. Psychiatric: Normal mood and affect. Behavior is normal. Judgment and thought content normal. Nursing note and vital signs have been reviewed Diagnostics: Chest Xray: Normal cardiac silhouette Large right pleural effusion No PTX No evidence of acute bony fracture. As interpreted by ER MD: Fabiana CTA of the chest: No evidence of pulmonary embolism. Mediastinal adenopathy and bilateral pulmonary masses consistent with metastatic disease. Primary lesion is not clearly defined although note is made of some infiltrating soft tissue density along the right bronchi and primary lung mass in this region would be a consideration. Large right pleural effusion with near complete atelectasis of the right lung. August 23, 2021 9:26 PM EKG: As interpreted by ER physician: Fabiana: Nonspecific ST-T wave abnormalities Normal axis No evidence of ST elevation AL Normal sinus tachycardic rhythm heart rate of 115 CBC, CMP within normal limits Therapeutics: [] Assessment and plan: 55-year-old gentleman who presents ER today secondary to progressive shortness of breath for 2 to 3 weeks with increasing dyspnea in the last 1 to 2 days. Patient evaluation revealed that he does have a large right pleural effusion with tachycardia with a heart rate currently of 115 to 130 bpm. Patient's chest x-ray revealed a large pleural effusion so a CT scan was obtained. Patient CT scan is concerning for lung cancer. And that showed mediastinal adenopathy and bilateral pulmonary masses with a infiltrating soft tissue density along the right bronchi. Patient will need admission for further evaluation of the pleural effusion, thoracentesis, diagnosis of his cancer and evaluation of his tachycardia. Case has been discussed with Dr. Edmonds who agrees with the plan to admit to [facility] for further evaluation and to initiate oncological evaluation. Thoracentesis was performed by Dr. Trevizo in the ED. Pulmonary developed of bloody fluid was obtained without difficulty. Informed consent was obtained from the patient prior to procedure performed. Intercostal space #5 6 was infiltrated with 3 cc of lidocaine. Utilizing a 14-gauge Angiocath, the pleural effusion/pleural cavity was identified and bloody fluid was obtained. After approximately 1200 cc of fluid, the Angiocath was removed and the sterile bandage was applied. Patient tolerated procedure well. Patient reports he feels much improved after the removal of the fluid. Chest x-ray will be obtained to rule out pneumothorax post procedure. Fluid has been sent for cell count, Gram stain and culture, LDH, pH. I have been unable to identify how to order cytology in the computer so I will defer to Dr. Gil Edmonds to place that order. I have spoken to the lab and they will hold a large sample of fluid for cytology to be ordered in the morning. Definitive disposition and diagnosis as appropriate pending reevaluation and review of above. ribs Pain Score (Numeric/FACES): 6 - Related Data Allergies Allergy/AdvReac Type Severity Reaction Status Date / Time No Known Allergies Allergy Verified 08/24/21 06:26 Home Meds: Home Meds Prednisone [IMW: predniSONE] 40 mg PO WITHBREAKFAST 5 Days #5 tab 10/10/17 [Rx] Past Medical History - Past Health History Medical/Surgical History: Denies Medical/Surgical History Respiratory History: Reports: Other (See Below) Other Respiratory History: shortness of breath Oncologic (Cancer) History: Reports: None - Infectious Disease History Infectious Disease History: Reports: Chicken Pox, Measles, Mumps - Past Surgical History Head Surgeries/Procedures: Reports: None Respiratory Surgical History: Reports: None Social & Family History - Family History Family Medical History: No Pertinent Family History - Tobacco Use Tobacco Use Status *Q: Former Tobacco User Used Tobacco, but Quit: Yes Month/Year Tobacco Last Used: 6 years - Caffeine Use Caffeine Use: Reports: Soda, Tea - Recreational Drug Use Recreational Drug Use: No ED ROS GENERAL - Review of Systems Review Of Systems: See Below ED EXAM, GENERAL - Physical Exam Exam: See Below Course - Vital Signs Last Recorded V/S: Last Vital Signs Temp 97.5 F 08/24/21 04:00 Pulse 112 H 08/24/21 04:00 Resp 20 08/24/21 04:00 BP 128/74 08/24/21 04:00 Pulse Ox 95 08/24/21 04:00 - Orders/Labs/Meds Orders: Active Orders 24 hr Category Date Time Status Patient Status [ADT] Routine ADT 08/24/21 00:29 Active CULTURE BLOOD [BC] Stat Lab 08/23/21 21:16 Received CULTURE BLOOD [BC] Stat Lab 08/23/21 21:30 Received Sodium Chloride 0.9% [Saline Flush] Med 08/23/21 20:50 Active 10 ml FLUSH ASDIRECTED PRN Sodium Chloride 0.9% [Saline Flush] Med 08/23/21 20:50 Active 2.5 ml FLUSH ASDIRECTED PRN Blood Culture x2 Reflex Set [OM.PC] Stat Oth 08/23/21 20:51 Ordered Saline Lock Insert [OM.PC] Stat Ot 08/23/21 20:50 Ordered Medication Orders Sodium Chloride (Sodium Chloride 0.9% 10 Ml Syringe) 10 ml FLUSH ASDIRECTED PRN PRN Reason: Keep Vein Open Last Admin: 08/23/21 21:33 Dose: 10 ml Documented by: EDEN Sodium Chloride (Sodium Chloride 0.9% 2.5 Ml Syringe) 2.5 ml FLUSH ASDIRECTED PRN PRN Reason: Keep Vein Open Last Admin: 08/23/21 21:33 Dose: 2.5 ml Documented by: EDEN Labs: Laboratory Tests 08/23/21 08/23/21 08/23/21 Range/Units 21:16 21:16 21:16 WBC 9.55 (4.0-11.0) K/uL RBC 4.34 L (4.50-5.90) M/uL Hgb 13.3 (13.0-17.0) g/dL Hct 38.4 (38.0-50.0) % MCV 88.5 (80.0-98.0) fL MCH 30.6 (27.0-32.0) pg MCHC 34.6 (31.0-37.0) g/dL RDW Std Deviation 41.9 (28.0-62.0) fl RDW Coeff of Jessie 13 (11.0-15.0) % Plt Count 540 H (150-400) K/uL MPV 8.80 (7.40-12.00) fL Neut % (Auto) 75.7 (48.0-80.0) % Lymph % (Auto) 14.3 L (16.0-40.0) % [place] % (Auto) 9.3 (0.0-15.0) % Eos % (Auto) 0.5 (0.0-7.0) % Baso % (Auto) 0.2 (0.0-1.5) % Neut # (Auto) 7.2 H (1.4-5.7) K/uL Lymph # (Auto) 1.4 (0.6-2.4) K/uL [place] # (Auto) 0.9 H (0.0-0.8) K/uL Eos # (Auto) 0.1 (0.0-0.7) K/uL Baso # (Auto) 0.0 (0.0-0.1) K/uL Nucleated RBC % 0.0 /100WBC Nucleated RBCs # 0 K/uL Sodium 136 (136-148) mmol/L Potassium 3.8 (3.5-5.1) mmol/L Chloride 100 (98-107) mmol/L Carbon Dioxide 24.0 (21.0-32.0) mmol/L BUN 14 (7.0-18.0) mg/dL Creatinine 1.1 (0.8-1.3) mg/dL Est Cr Clr Drug Dosing 72.55 mL/min Estimated GFR (MDRD) > 60.0 ml/min Glucose 109 H (74-106) mg/dL Calcium 8.9 (8.5-10.1) mg/dL Total Bilirubin 0.3 (0.2-1.0) mg/dL AST 27 (15-37) IU/L ALT 55 (14-63) IU/L Alkaline Phosphatase 148 H (46-116) U/L Troponin I < 0.050 (0.000-0.056) ng/mL Total Protein 6.7 (6.4-8.2) g/dL Albumin 2.2 L (3.4-5.0) g/dL Globulin 4.5 H (2.6-4.0) g/dL Albumin/Globulin Ratio 0.5 L (0.9-1.6) Lipase 58 L (73-393) U/L Urine Color Urine Appearance Urine pH (5.0-8.0) Ur Specific [place] (1.001-1.035) Urine Protein (NEGATIVE) mg/dL Urine Glucose (UA) (NEGATIVE) mg/dL Urine Ketones (NEGATIVE) mg/dL Urine Occult Blood (NEGATIVE) Urine Nitrite (NEGATIVE) Urine Bilirubin (NEGATIVE) Urine Urobilinogen (<2.0) EU/dL Ur Leukocyte Esterase (NEGATIVE) Influenza Type A RNA NEGATIVE (NEGATIVE) Influenza Type B RNA NEGATIVE (NEGATIVE) SARS-CoV-2 RNA ([place]IT[place]) NEGATIVE (NEGATIVE) 08/23/21 Range/Units 21:28 WBC (4.0-11.0) K/uL RBC (4.50-5.90) M/uL Hgb (13.0-17.0) g/dL Hct (38.0-50.0) % MCV (80.0-98.0) fL MCH (27.0-32.0) pg MCHC (31.0-37.0) g/dL RDW Std Deviation (28.0-62.0) fl RDW Coeff of Jessie (11.0-15.0) % Plt Count (150-400) K/uL MPV (7.40-12.00) fL Neut % (Auto) (48.0-80.0) % Lymph % (Auto) (16.0-40.0) % [place] % (Auto) (0.0-15.0) % Eos % (Auto) (0.0-7.0) % Baso % (Auto) (0.0-1.5) % Neut # (Auto) (1.4-5.7) K/uL Lymph # (Auto) (0.6-2.4) K/uL [place] # (Auto) (0.0-0.8) K/uL Eos # (Auto) (0.0-0.7) K/uL Baso # (Auto) (0.0-0.1) K/uL Nucleated RBC % /100WBC Nucleated RBCs # K/uL Sodium (136-148) mmol/L Potassium (3.5-5.1) mmol/L Chloride (98-107) mmol/L Carbon Dioxide (21.0-32.0) mmol/L BUN (7.0-18.0) mg/dL Creatinine (0.8-1.3) mg/dL Est Cr Clr Drug Dosing mL/min Estimated GFR (MDRD) ml/min Glucose (74-106) mg/dL Calcium (8.5-10.1) mg/dL Total Bilirubin (0.2-1.0) mg/dL AST (15-37) IU/L ALT (14-63) IU/L Alkaline Phosphatase (46-116) U/L Troponin I (0.000-0.056) ng/mL Total Protein (6.4-8.2) g/dL Albumin (3.4-5.0) g/dL Globulin (2.6-4.0) g/dL Albumin/Globulin Ratio (0.9-1.6) Lipase (73-393) U/L Urine Color YELLOW Urine Appearance CLEAR Urine pH 6.0 (5.0-8.0) Ur Specific [place] 1.015 (1.001-1.035) Urine Protein NEGATIVE (NEGATIVE) mg/dL Urine Glucose (UA) NEGATIVE (NEGATIVE) mg/dL Urine Ketones TRACE H (NEGATIVE) mg/dL Urine Occult Blood NEGATIVE (NEGATIVE) Urine Nitrite NEGATIVE (NEGATIVE) Urine Bilirubin NEGATIVE (NEGATIVE) Urine Urobilinogen 0.2 (<2.0) EU/dL Ur Leukocyte Esterase NEGATIVE (NEGATIVE) Influenza Type A RNA (NEGATIVE) Influenza Type B RNA (NEGATIVE) SARS-CoV-2 RNA ([place]) (NEGATIVE) Meds: Medications Generic Name Dose Route Start Last Admin Trade Name Freq PRN Reason Stop Dose Admin Sodium Chloride 10 ml 08/23/21 20:50 08/23/21 21:33 Sodium Chloride 0.9% 10 Ml Syringe FLUSH 10 ml ASDIRECTED PRN Administration Keep Vein Open Sodium Chloride 2.5 ml 08/23/21 20:50 08/23/21 21:33 Sodium Chloride 0.9% 2.5 Ml Syringe FLUSH 2.5 ml ASDIRECTED PRN Administration Keep Vein Open Discontinued Medications Generic Name Dose Route Start Last Admin Trade Name Freq PRN Reason Stop Dose Admin Iopamidol 100 ml 08/23/21 22:26 08/23/21 22:40 Iopamidol 755 Mg/Ml 100 Ml Bottle IVPUSH 08/23/21 22:27 100 ml ONETIME ONE Administration Departure - Departure Time of Disposition: 02:35 Disposition: Refer to Observation Condition: Good Clinical Impression: Pleural effusion, Pulmonary mass, Tachycardia Dyspnea Qualifiers: Dyspnea type: dyspnea on exertion Qualified Code(s): R06.00 - Dyspnea, unspecified - Discharge Information Sepsis Event Note (ED) - Evaluation Sepsis Screening Result: No Definite Risk - Focused Exam Vital Signs: Vital Signs Temp Pulse Resp BP Pulse Ox 08/24/21 00:17 126 H 20 120/78 95 08/23/21 21:33 119 H 18 128/89 95 08/23/21 20:46 98.4 F 121 H 18 140/91 H 95 - My Orders Last 24 Hours: My Active Orders 08/23/21 20:50 Sodium Chloride 0.9% [Saline Flush] 10 ml FLUSH ASDIRECTED PRN Sodium Chloride 0.9% [Saline Flush] 2.5 ml FLUSH ASDIRECTED PRN Saline Lock Insert [OM.PC] Stat 08/23/21 20:51 Blood Culture x2 Reflex Set [OM.PC] Stat 08/23/21 21:16 CULTURE BLOOD [BC] Stat 08/23/21 21:30 CULTURE BLOOD [BC] Stat 08/24/21 00:29 Patient Status [ADT] Routine - Assessment/Plan Last 24 Hours: My Active Orders 08/23/21 20:50 Sodium Chloride 0.9% [Saline Flush] 10 ml FLUSH ASDIRECTED PRN Sodium Chloride 0.9% [Saline Flush] 2.5 ml FLUSH ASDIRECTED PRN Saline Lock Insert [OM.PC] Stat 08/23/21 20:51 Blood Culture x2 Reflex Set [OM.PC] Stat 08/23/21 21:16 CULTURE BLOOD [BC] Stat 08/23/21 21:30 CULTURE BLOOD [BC] Stat 08/24/21 00:29 Patient Status [ADT] Routine Thoracentesis - Thoracentesis Thoracentesis Indication: pleural effusion, pleural fluid analysis Location: Right Skin prep: CDC/MBT Guidelines, Sterile Drapes, Betadine, Chlorhexidine Ultrasound guided: No Local anesthesia: lidocaine 1 % Local anesthesia volume: 5cc Number of Attempts: 1 Device Used: other Fluid: bloody Fluids sent: gram stain and culture, cell count, protein, glucose, cytology Chest xray: Yes Complications: No Dressing: adhesive dressing Thoracentesis comment: Thoracentesis performed utilizing a 14 [place] Angiocath. Approximately 1200 mL of bloody fluid obtained. Fluid sent for testing.
--- NOTE | 2021-08-24 03:03 | CR ---
Indication: Status post thoracentesis. Technique: Chest 1 view Comparison: Chest x-ray 08/23/2021 Findings/Impression: Cardiovascular and mediastinum: Normal heart size with atherosclerotic calcification. Lungs and pleural space: Multiple pulmonary nodules demonstrated within the left hemithorax. Large right pleural effusion with partial aeration of the right lung. Lucency at the apex of the right hemithorax which is somewhat nonspecific. This could represent a small pneumothorax or a tiny pocket of aerated lung. Size of the pleural effusion appears similar to mildly increased compared to the prior exam. Bones and soft tissues: No acute findings. Dictated by Yuniel Armstrong MD @ 08/24/2021 3:01:20 AM (Electronically Signed)
[2021-08-24 06:41] LABS: BLOOD UREA NITROGEN,BUN 11 mg/dL (7.0-18.0); CARBON DIOXIDE,CO2 28.3 mmol/L (21.0-32.0); CHLORIDE,CL 102 mmol/L (98-107); GLUCOSE RANDOM 142 mg/dL (74-106); POTASSIUM,K 4.8 mmol/L (3.5-5.1); SODIUM,NA 139 mmol/L (136-148)
--- NOTE | 2021-08-24 13:52 | PCM.HP.2 ---
H&P History of Present Illness - General Date of Service: 08/24/21 Admit Problem/Dx: Admission Diagnosis/Problem Admission Diagnosis/Problem Pleural effusion on right - History of Present Illness Initial Comments - Free Text/Narative: The patient is a 55-year-old male, on day 1 of service, with no signif icant past medical history, who was admitted to the medical floor due to a 2- month history of worsening respiratory difficulty exhibited through shortness of breath upon exertion. At first the patient was able to ambulate, and perform activities of daily living with slight difficulty breathing however in the past 5 days it has progressed to the point where after 10 steps the patient has to stop in order to catch his breath. 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 He has also been complaining of cough for the same duration of time, the cough initially started as dry and then progressed to become productive of clear sputum, which further progressed to blood tinged sputum, with occasional leonard bloody sputum first thing in the morning. The patient denies fever, chills, shakes, nausea, vomiting, dysuria, frequency, urgency, chest pain, palpitations, abdominal pain, weight loss, and any issues with urination and/or defecation. He does have a family history on his fathers side of heart issues, SD's, and emphysema and on his mother's side Jackie Gehrig's disease. With respect to social history, the patient denies recreational drug use and alcohol consumption, but admits to a 36-year history of smoking a half a pack of cigarettes which he quit 6 years ago. On chest x-ray, he had a large pleural effusion on the right, 1.3 L in volume, and also had multiple pulmonary nodules in the left hemithorax consistent with metastatic disease, he also has partial aeration of the right lung, and at the a pex of the right lung there is a small pneumothorax. On CT angiography the patient has atelectasis of the right lung, and findings of a right hilar mass most likely to be primary lung carcinoma. In the emergency room, he had a thoracentesis done of the right lung which revealed bloody fluid. The procedure happened between the intercostal fifth and sixth spaces, and 3 cc of lidocaine was used. The bloody fluid that was collected will be sent for cytology and other tests. ribs Pain Score (Numeric/FACES): 0 - Related Data Allergies/Adverse Reactions: Allergies Allergy/AdvReac Type Severity Reaction Status Date / Time No Known Allergies Allergy Verified 08/24/21 06:26 Home Medications: Home Meds Prednisone [IMW: predniSONE] 40 mg PO WITHBREAKFAST 5 Days #5 tab 10/10/17 [Rx] Past Medical History - Past Health History Medical/Surgical History: Denies Medical/Surgical History Respiratory History: Reports: Other (See Below) Other Respiratory History: shortness of breath Oncologic (Cancer) History: Reports: None - Infectious Disease History Infectious Disease History: Reports: Chicken Pox, Measles, Mumps - Past Surgical History Head Surgeries/Procedures: Reports: None Respiratory Surgical History: Reports: None Social & Family History - Family History Family Medical History: No Pertinent Family History - Tobacco Use Tobacco Use Status *Q: Former Tobacco User Used Tobacco, but Quit: Yes Month/Year Tobacco Last Used: 6 years - Caffeine Use Caffeine Use: Reports: Soda, Tea - Recreational Drug Use Recreational Drug Use: No H&P Review of Systems - Review of Systems: Review Of Systems: See Below General: Denies: Fever, Chills, Weakness, Fatigue, Night Sweats HEENT: Denies: Sore Throat Pulmonary: Reports: Shortness of Breath, Cough, Sputum, Hemoptysis. Denies: Pleuritic Chest Pain Cardiovascular: Reports: Dyspnea on Exertion. Denies: Chest Pain, Palpitations Gastrointestinal: Denies: Abdominal Pain, Constipation, Diarrhea Genitourinary: Denies: Dysuria Exam - Exam Exam: See Below - Vital Signs Vital Signs: Last Vital Signs Temp 97.6 F 08/24/21 11:58 Pulse 113 H 08/24/21 11:58 Resp 20 08/24/21 11:58 BP 115/76 08/24/21 11:58 Pulse Ox 93 L 08/24/21 11:58 Weight: 189 lb 12.8 oz - Exam General: Alert, Oriented, Cooperative HEENT: Mucosa Moist & [place] Neck: Trachea Midline Lungs: Rhonchi Cardiovascular: Regular Rate, Regular Rhythm GI/Abdominal Exam: Normal Bowel Sounds, Soft, Non-Tender, No Organomegaly - Patient Data Lab Results Last 24 hrs: Laboratory Results - last 24 hr 08/23/21 08/23/21 08/23/21 Range/Units 21:16 21:16 21:16 WBC 9.55 (4.0-11.0) K/uL RBC 4.34 L (4.50-5.90) M/uL Hgb 13.3 (13.0-17.0) g/dL Hct 38.4 (38.0-50.0) % MCV 88.5 (80.0-98.0) fL MCH 30.6 (27.0-32.0) pg MCHC 34.6 (31.0-37.0) g/dL RDW Std Deviation 41.9 (28.0-62.0) fl RDW Coeff of Jessie 13 (11.0-15.0) % Plt Count 540 H (150-400) K/uL MPV 8.80 (7.40-12.00) fL Neut % (Auto) 75.7 (48.0-80.0) % Lymph % (Auto) 14.3 L (16.0-40.0) % [place] % (Auto) 9.3 (0.0-15.0) % Eos % (Auto) 0.5 (0.0-7.0) % Baso % (Auto) 0.2 (0.0-1.5) % Neut # (Auto) 7.2 H (1.4-5.7) K/uL Lymph # (Auto) 1.4 (0.6-2.4) K/uL [place] # (Auto) 0.9 H (0.0-0.8) K/uL Eos # (Auto) 0.1 (0.0-0.7) K/uL Baso # (Auto) 0.0 (0.0-0.1) K/uL Nucleated RBC % 0.0 /100WBC Nucleated RBCs # 0 K/uL Sodium 136 (136-148) mmol/L Potassium 3.8 (3.5-5.1) mmol/L Chloride 100 (98-107) mmol/L Carbon Dioxide 24.0 (21.0-32.0) mmol/L BUN 14 (7.0-18.0) mg/dL Creatinine 1.1 (0.8-1.3) mg/dL Est Cr Clr Drug Dosing 72.55 mL/min Estimated GFR (MDRD) > 60.0 ml/min Glucose 109 H (74-106) mg/dL Calcium 8.9 (8.5-10.1) mg/dL Total Bilirubin 0.3 (0.2-1.0) mg/dL AST 27 (15-37) IU/L ALT 55 (14-63) IU/L Alkaline Phosphatase 148 H (46-116) U/L Troponin I < 0.050 (0.000-0.056) ng/mL Total Protein 6.7 (6.4-8.2) g/dL Albumin 2.2 L (3.4-5.0) g/dL Globulin 4.5 H (2.6-4.0) g/dL Albumin/Globulin Ratio 0.5 L (0.9-1.6) Lipase 58 L (73-393) U/L Urine Color Urine Appearance Urine pH (5.0-8.0) Ur Specific [place] (1.001-1.035) Urine Protein (NEGATIVE) mg/dL Urine Glucose (UA) (NEGATIVE) mg/dL Urine Ketones (NEGATIVE) mg/dL Urine Occult Blood (NEGATIVE) Urine Nitrite (NEGATIVE) Urine Bilirubin (NEGATIVE) Urine Urobilinogen (<2.0) EU/dL Ur Leukocyte Esterase (NEGATIVE) Fluid Type Fluid Color Fluid Appearance Fluid WBC /uL Fluid RBC /uL Fluid Mononuclear Cell % Fl Polymorphonucl Cell % Fluid Glucose mg/dL Fluid Total Protein g/dL Fluid LDH U/L Pleural pH Influenza Type A RNA NEGATIVE (NEGATIVE) Influenza Type B RNA NEGATIVE (NEGATIVE) SARS-CoV-2 RNA (TITO) NEGATIVE (NEGATIVE) 08/23/21 08/24/21 08/24/21 Range/Units 21:28 02:07 02:07 WBC (4.0-11.0) K/uL RBC (4.50-5.90) M/uL Hgb (13.0-17.0) g/dL Hct (38.0-50.0) % MCV (80.0-98.0) fL MCH (27.0-32.0) pg MCHC (31.0-37.0) g/dL RDW Std Deviation (28.0-62.0) fl RDW Coeff of Jessie (11.0-15.0) % Plt Count (150-400) K/uL MPV (7.40-12.00) fL Neut % (Auto) (48.0-80.0) % Lymph % (Auto) (16.0-40.0) % [place] % (Auto) (0.0-15.0) % Eos % (Auto) (0.0-7.0) % Baso % (Auto) (0.0-1.5) % Neut # (Auto) (1.4-5.7) K/uL Lymph # (Auto) (0.6-2.4) K/uL [place] # (Auto) (0.0-0.8) K/uL Eos # (Auto) (0.0-0.7) K/uL Baso # (Auto) (0.0-0.1) K/uL Nucleated RBC % /100WBC Nucleated RBCs # K/uL Sodium (136-148) mmol/L Potassium (3.5-5.1) mmol/L Chloride (98-107) mmol/L Carbon Dioxide (21.0-32.0) mmol/L BUN (7.0-18.0) mg/dL Creatinine (0.8-1.3) mg/dL Est Cr Clr Drug Dosing mL/min Estimated GFR (MDRD) ml/min Glucose (74-106) mg/dL Calcium (8.5-10.1) mg/dL Total Bilirubin (0.2-1.0) mg/dL AST (15-37) IU/L ALT (14-63) IU/L Alkaline Phosphatase (46-116) U/L Troponin I (0.000-0.056) ng/mL Total Protein (6.4-8.2) g/dL Albumin (3.4-5.0) g/dL Globulin (2.6-4.0) g/dL Albumin/Globulin Ratio (0.9-1.6) Lipase (73-393) U/L Urine Color YELLOW Urine Appearance CLEAR Urine pH 6.0 (5.0-8.0) Ur Specific [place] 1.015 (1.001-1.035) Urine Protein NEGATIVE (NEGATIVE) mg/dL Urine Glucose (UA) NEGATIVE (NEGATIVE) mg/dL Urine Ketones TRACE H (NEGATIVE) mg/dL Urine Occult Blood NEGATIVE (NEGATIVE) Urine Nitrite NEGATIVE (NEGATIVE) Urine Bilirubin NEGATIVE (NEGATIVE) Urine Urobilinogen 0.2 (<2.0) EU/dL Ur Leukocyte Esterase NEGATIVE (NEGATIVE) Fluid Type PL PL Fluid Color RED Fluid Appearance CLOUDY Fluid WBC 1089 /uL Fluid RBC 12275 /uL Fluid Mononuclear Cell 6 % Fl Polymorphonucl Cell 94 % Fluid Glucose mg/dL Fluid Total Protein g/dL Fluid LDH 558 U/L Pleural pH 8.0 Influenza Type A RNA (NEGATIVE) Influenza Type B RNA (NEGATIVE) SARS-CoV-2 RNA (TITO) (NEGATIVE) 08/24/21 08/24/21 08/24/21 Range/Units 02:07 02:07 04:38 WBC 9.98 (4.0-11.0) K/uL RBC 4.36 L (4.50-5.90) M/uL Hgb 13.3 (13.0-17.0) g/dL Hct 39.1 (38.0-50.0) % MCV 89.7 (80.0-98.0) fL MCH 30.5 (27.0-32.0) pg MCHC 34.0 (31.0-37.0) g/dL RDW Std Deviation 42.7 (28.0-62.0) fl RDW Coeff of Jessie 13 (11.0-15.0) % Plt Count 563 H (150-400) K/uL MPV 9.00 (7.40-12.00) fL Neut % (Auto) 82.0 H (48.0-80.0) % Lymph % (Auto) 9.1 L (16.0-40.0) % [place] % (Auto) 8.2 (0.0-15.0) % Eos % (Auto) 0.5 (0.0-7.0) % Baso % (Auto) 0.2 (0.0-1.5) % Neut # (Auto) 8.2 H (1.4-5.7) K/uL Lymph # (Auto) 0.9 (0.6-2.4) K/uL [place] # (Auto) 0.8 (0.0-0.8) K/uL Eos # (Auto) 0.1 (0.0-0.7) K/uL Baso # (Auto) 0.0 (0.0-0.1) K/uL Nucleated RBC % 0.0 /100WBC Nucleated RBCs # 0 K/uL Sodium (136-148) mmol/L Potassium (3.5-5.1) mmol/L Chloride (98-107) mmol/L Carbon Dioxide (21.0-32.0) mmol/L BUN (7.0-18.0) mg/dL Creatinine (0.8-1.3) mg/dL Est Cr Clr Drug Dosing mL/min Estimated GFR (MDRD) ml/min Glucose (74-106) mg/dL Calcium (8.5-10.1) mg/dL Total Bilirubin (0.2-1.0) mg/dL AST (15-37) IU/L ALT (14-63) IU/L Alkaline Phosphatase (46-116) U/L Troponin I (0.000-0.056) ng/mL Total Protein (6.4-8.2) g/dL Albumin (3.4-5.0) g/dL Globulin (2.6-4.0) g/dL Albumin/Globulin Ratio (0.9-1.6) Lipase (73-393) U/L Urine Color Urine Appearance Urine pH (5.0-8.0) Ur Specific [place] (1.001-1.035) Urine Protein (NEGATIVE) mg/dL Urine Glucose (UA) (NEGATIVE) mg/dL Urine Ketones (NEGATIVE) mg/dL Urine Occult Blood (NEGATIVE) Urine Nitrite (NEGATIVE) Urine Bilirubin (NEGATIVE) Urine Urobilinogen (<2.0) EU/dL Ur Leukocyte Esterase (NEGATIVE) Fluid Type PL PL Fluid Color Fluid Appearance Fluid WBC /uL Fluid RBC /uL Fluid Mononuclear Cell % Fl Polymorphonucl Cell % Fluid Glucose 89 mg/dL Fluid Total Protein 4.0 g/dL Fluid LDH U/L Pleural pH Influenza Type A RNA (NEGATIVE) Influenza Type B RNA (NEGATIVE) SARS-CoV-2 RNA (TITO) (NEGATIVE) 08/24/21 Range/Units 04:38 WBC (4.0-11.0) K/uL RBC (4.50-5.90) M/uL Hgb (13.0-17.0) g/dL Hct (38.0-50.0) % MCV (80.0-98.0) fL MCH (27.0-32.0) pg MCHC (31.0-37.0) g/dL RDW Std Deviation (28.0-62.0) fl RDW Coeff of Jessie (11.0-15.0) % Plt Count (150-400) K/uL MPV (7.40-12.00) fL Neut % (Auto) (48.0-80.0) % Lymph % (Auto) (16.0-40.0) % [place] % (Auto) (0.0-15.0) % Eos % (Auto) (0.0-7.0) % Baso % (Auto) (0.0-1.5) % Neut # (Auto) (1.4-5.7) K/uL Lymph # (Auto) (0.6-2.4) K/uL [place] # (Auto) (0.0-0.8) K/uL Eos # (Auto) (0.0-0.7) K/uL Baso # (Auto) (0.0-0.1) K/uL Nucleated RBC % /100WBC Nucleated RBCs # K/uL Sodium 139 (136-148) mmol/L Potassium 4.8 (3.5-5.1) mmol/L Chloride 102 (98-107) mmol/L Carbon Dioxide 28.3 (21.0-32.0) mmol/L BUN 11 (7.0-18.0) mg/dL Creatinine 1.1 (0.8-1.3) mg/dL Est Cr Clr Drug Dosing 72.55 mL/min Estimated GFR (MDRD) > 60.0 ml/min Glucose 142 H (74-106) mg/dL Calcium 8.1 L (8.5-10.1) mg/dL Total Bilirubin (0.2-1.0) mg/dL AST (15-37) IU/L ALT (14-63) IU/L Alkaline Phosphatase (46-116) U/L Troponin I (0.000-0.056) ng/mL Total Protein (6.4-8.2) g/dL Albumin (3.4-5.0) g/dL Globulin (2.6-4.0) g/dL Albumin/Globulin Ratio (0.9-1.6) Lipase (73-393) U/L Urine Color Urine Appearance Urine pH (5.0-8.0) Ur Specific [place] (1.001-1.035) Urine Protein (NEGATIVE) mg/dL Urine Glucose (UA) (NEGATIVE) mg/dL Urine Ketones (NEGATIVE) mg/dL Urine Occult Blood (NEGATIVE) Urine Nitrite (NEGATIVE) Urine Bilirubin (NEGATIVE) Urine Urobilinogen (<2.0) EU/dL Ur Leukocyte Esterase (NEGATIVE) Fluid Type Fluid Color Fluid Appearance Fluid WBC /uL Fluid RBC /uL Fluid Mononuclear Cell % Fl Polymorphonucl Cell % Fluid Glucose mg/dL Fluid Total Protein g/dL Fluid LDH U/L Pleural pH Influenza Type A RNA (NEGATIVE) Influenza Type B RNA (NEGATIVE) SARS-CoV-2 RNA (TITO) (NEGATIVE) Result Diagrams: 08/24/21 04:38 08/24/21 04:38 Sepsis Event Note - Evaluation Sepsis Screening Result: No Definite Risk - Focused Exam Vital Signs: Vital Signs Temp Pulse Resp BP Pulse Ox 08/24/21 11:58 97.6 F 113 H 20 115/76 93 L 08/24/21 08:00 98.2 F 108 H 20 112/69 91 L 08/24/21 04:00 97.5 F 112 H 20 128/74 95 - Problem List (1) Dyspnea SNOMED Code(s): 146265255 ICD Code: R06.00 - DYSPNEA, UNSPECIFIED Status: Acute Current Visit: Yes Qualifiers: Dyspnea type: dyspnea on exertion Qualified Code(s): R06.00 - Dyspnea, unspecified (2) Pleural effusion SNOMED Code(s): 15830981 ICD Code: J90 - PLEURAL EFFUSION, NOT ELSEWHERE CLASSIFIED Status: Acute Current Visit: Yes (3) Pulmonary mass SNOMED Code(s): 355404708 ICD Code: R91.8 - OTHER NONSPECIFIC ABNORMAL FINDING OF LUNG FIELD Status: Acute Current Visit: Yes Problem List Initiated/Reviewed/Updated: Yes Orders Last 24hrs: Active Orders 24 hr Category Date Time Status Patient Status [ADT] Routine ADT 08/24/21 00:29 Active Telemetry Monitoring [Cardiac Monitoring] [RC] . Care 08/24/21 04:07 Active DIRECTED Regular Diet [DIET] Diet 08/24/21 Breakfast Active CBC WITH AUTO DIFF [HEME] AM Lab 08/25/21 05:11 Ordered CBC WITH AUTO DIFF [HEME] AM Lab 08/26/21 05:11 Ordered CBC WITH AUTO DIFF [HEME] AM Lab 08/27/21 05:11 Ordered CBC WITH AUTO DIFF [HEME] AM Lab 08/28/21 05:11 Ordered CBC WITH AUTO DIFF [HEME] AM Lab 08/29/21 05:11 Ordered CMP [COMPREHENSIVE METABOLIC PN,CMP] [CHEM] AM Lab 08/25/21 05:11 Ordered CMP [COMPREHENSIVE METABOLIC PN,CMP] [CHEM] AM Lab 08/26/21 05:11 Ordered CMP [COMPREHENSIVE METABOLIC PN,CMP] [CHEM] AM Lab 08/27/21 05:11 Ordered CMP [COMPREHENSIVE METABOLIC PN,CMP] [CHEM] AM Lab 08/28/21 05:11 Ordered CMP [COMPREHENSIVE METABOLIC PN,CMP] [CHEM] AM Lab 08/29/21 05:11 Ordered CULTURE BLOOD [BC] Stat Lab 08/23/21 21:16 Received CULTURE BLOOD [BC] Stat Lab 08/23/21 21:30 Received MISCELLANEOUS CULT [MREF] Stat Lab 08/24/21 02:07 Received Pantoprazole [ProTONIX] Med 08/24/21 13:45 Ordered 40 mg PO DAILY Sodium Chloride 0.9% [Saline Flush] Med 08/23/21 20:50 Active 10 ml FLUSH ASDIRECTED PRN Sodium Chloride 0.9% [Saline Flush] Med 08/23/21 20:50 Active 2.5 ml FLUSH ASDIRECTED PRN Blood Culture x2 Reflex Set [OM.PC] Stat Oth 08/23/21 20:51 Ordered Saline Lock Insert [OM.PC] Stat Oth 08/23/21 20:50 Ordered Medication Orders Pantoprazole Sodium (Pantoprazole 40 Mg Tab.Cr) 40 mg PO DAILY INDIRA Sodium Chloride (Sodium Chloride 0.9% 10 Ml Syringe) 10 ml FLUSH ASDIRECTED PRN PRN Reason: Keep Vein Open Last Admin: 08/23/21 21:33 Dose: 10 ml Documented by: EDEN Sodium Chloride (Sodium Chloride 0.9% 2.5 Ml Syringe) 2.5 ml FLUSH ASDIRECTED PRN PRN Reason: Keep Vein Open Last Admin: 08/23/21 21:33 Dose: 2.5 ml Documented by: EDEN Assessment/Plan Comment:: Admit the patient to the medical floor, vitals per unit routine, activity up ad fernando, DVT prophylaxis with SCDs, GI prophylaxis with pantoprazole 40 mg per oral route once a day, regular diet 1. Pleural effusion on the right most likely due to primary lung carcinoma with metastatic disease -The patient had a thoracentesis done in the emergency department which revealed 1.3 L of bloody fluid -Pleural fluid was sent for cytology, pH level, Gram stain and culture, blood cell count and differential, glucose level, protein levels, lactic acid dehydrogenase levels -Once the results of fluid studies return, we will have a clear picture of what is causing this patient's pleural effusion -I had a chance to speak with Dr. Rashid, abrasive worker in [place], about this patient's case. He suggested that the imaging be sent to [facility] where he will review them and have a better idea on how to treat this patient. He also suggested that we wait for cytology and other fluid studies to come back before we discuss future management options. He also suggested that thoracentesis/tap procedures should happen every other day if necessary. All the information has been sent to him and we will move forward by following his recommendations. After the patient has been stabilized, he will most likely see Dr. Rashid on an outpatient basis. -Daily CBC/CMP's. 2. Cough -For the patient's cough we have ordered Robitussin on an as-needed basis.
[2021-08-24] MEDS ORDERED: guaiFENesin 100 MG/5 ML Soln 5 ML UD Cup PO PRN (14:08)
[2021-08-24] MEDS: Pantoprazole 40 MG Tab.CR PO SCH (14:17)
[2021-08-24] MEDS ORDERED: Acetaminophen 325 MG Tab PO PRN (14:30)
[2021-08-25 06:38] LABS: BLOOD UREA NITROGEN,BUN 14 mg/dL (7.0-18.0); CARBON DIOXIDE,CO2 28.3 mmol/L (21.0-32.0); CHLORIDE,CL 103 mmol/L (98-107); GLUCOSE RANDOM 107 mg/dL (74-106); POTASSIUM,K 4.9 mmol/L (3.5-5.1); SODIUM,NA 139 mmol/L (136-148)
[2021-08-25] MEDS: Pantoprazole 40 MG Tab.CR PO SCH (09:07)
[2021-08-25] MEDS: Albuterol/Ipratropium 3.0-0.5 MG/3 ML Neb Soln NEB PRN ×2 (11:11→18:44)
--- NOTE | 2021-08-25 16:39 | PCM.PN ---
- General Info Date of Service: 08/25/21 Subjective Update: The patient is a 55-year-old male, on day 2 of service, who has no significant past medical history, who was admitted due to a right-sided pleural effusion which was drained via thoracentesis, and is most likely secondary to lung carcinoma with metastatic disease. He had 1.3 L of pleural fluid tapped which was bloody in consistency and was sent off to [facility] for cytology. It was explained to the patient today that he would require treatment from a architect in training and/or interventional radiologist to have additional tapping procedures done when fluid reaccumulates in his pleura. The patient has also been suffering from a cough which is causing shortness of breath and is on Robitussin and duo nebulizer treatment. Upon interview with the patient today, he informed me that his will visit the hospital later today and would like to talk to a provider in regards to his care. The patient's daughter is a pharmacist and would also like to talk to a provider. The patient admits to productive cough, slight shortness of breath on deep inspiration, and some chest discomfort when breathing. He has no other complaints at this time. - Review of Systems General: Denies: Fever, Weakness, Chills HEENT: Denies: Headaches Pulmonary: Reports: Shortness of Breath, Pleuritic Chest Pain, Cough Cardiovascular: Reports: Dyspnea on Exertion. Denies: Chest Pain, Palpitations Gastrointestinal: Denies: Abdominal Pain, Constipation, Diarrhea Genitourinary: Denies: Dysuria - Patient Data Vitals - Most Recent: Last Vital Signs Temp 97.1 F 08/25/21 15:31 Pulse 68 08/25/21 15:31 Resp 20 08/25/21 15:31 BP 120/77 08/25/21 15:31 Pulse Ox 93 L 08/25/21 15:31 Weight - Most Recent: 189 lb 12.8 oz I&O - Last 24 Hours: Intake & Output 08/25/21 08/25/21 08/25/21 06:59 14:59 22:59 Intake Total 550 Output Total 600 Balance -50 Lab Results Last 24 Hours: Laboratory Results - last 24 hr 08/25/21 08/25/21 Range/Units 05:04 05:04 WBC 10.98 (4.0-11.0) K/uL RBC 4.37 L (4.50-5.90) M/uL Hgb 13.5 (13.0-17.0) g/dL Hct 39.9 (38.0-50.0) % MCV 91.3 (80.0-98.0) fL MCH 30.9 (27.0-32.0) pg MCHC 33.8 (31.0-37.0) g/dL RDW Std Deviation 42.1 (28.0-62.0) fl RDW Coeff of Jessie 13 (11.0-15.0) % Plt Count 536 H (150-400) K/uL MPV 8.90 (7.40-12.00) fL Neut % (Auto) 79.6 (48.0-80.0) % Lymph % (Auto) 9.6 L (16.0-40.0) % [place] % (Auto) 10.2 (0.0-15.0) % Eos % (Auto) 0.4 (0.0-7.0) % Baso % (Auto) 0.2 (0.0-1.5) % Neut # (Auto) 8.8 H (1.4-5.7) K/uL Lymph # (Auto) 1.1 (0.6-2.4) K/uL [place] # (Auto) 1.1 H (0.0-0.8) K/uL Eos # (Auto) 0.0 (0.0-0.7) K/uL Baso # (Auto) 0.0 (0.0-0.1) K/uL Sodium 139 (136-148) mmol/L Potassium 4.9 (3.5-5.1) mmol/L Chloride 103 (98-107) mmol/L Carbon Dioxide 28.3 (21.0-32.0) mmol/L BUN 14 (7.0-18.0) mg/dL Creatinine 1.2 (0.8-1.3) mg/dL Est Cr Clr Drug Dosing 66.50 mL/min Estimated GFR (MDRD) > 60.0 ml/min Glucose 107 H (74-106) mg/dL Calcium 7.8 L (8.5-10.1) mg/dL Total Bilirubin 0.2 (0.2-1.0) mg/dL AST 24 (15-37) IU/L ALT 45 (14-63) IU/L Alkaline Phosphatase 131 H (46-116) U/L Total Protein 5.6 L (6.4-8.2) g/dL Albumin 1.9 L (3.4-5.0) g/dL Globulin 3.7 (2.6-4.0) g/dL Albumin/Globulin Ratio 0.5 L (0.9-1.6) Antione Results Last 24 Hours: Microbiology 08/24/21 02:07 Gram Stain - Final Pleural Fluid - Pleural Cavity, Unspecified 08/23/21 21:30 Aerobic Blood Culture - Preliminary Blood - Venous - Lab Draw NO GROWTH AFTER 1 DAY Anaerobic Blood Culture - Preliminary NO GROWTH AFTER 1 DAY 08/23/21 21:16 Aerobic Blood Culture - Preliminary Blood - Venous NO GROWTH AFTER 1 DAY Anaerobic Blood Culture - Preliminary NO GROWTH AFTER 1 DAY Med Orders - Current: Current Medications Acetaminophen (Acetaminophen 325 Mg Tab) 650 mg PO Q6H PRN PRN Reason: Chest Pain Last Admin: 08/24/21 14:54 Dose: 650 mg Documented by: Albuterol/Ipratropium (Albuterol/Ipratropium 3.0-0.5 Mg/3 Ml Neb Soln) 3 ml NEB Q4HRRT PRN PRN Reason: Cough Last Admin: 08/25/21 11:11 Dose: 3 ml Documented by: Guaifenesin (Guaifenesin 100 Mg/5 Ml Soln 5 Ml Ud Cup) 200 mg PO Q4H PRN PRN Reason: Cough Pantoprazole Sodium (Pantoprazole 40 Mg Tab.Cr) 40 mg PO DAILY INDIRA Last Admin: 08/25/21 09:07 Dose: 40 mg Documented by: Sodium Chloride (Sodium Chloride 0.9% 10 Ml Syringe) 10 ml FLUSH ASDIRECTED PRN PRN Reason: Keep Vein Open Last Admin: 08/23/21 21:33 Dose: 10 ml Documented by: Sodium Chloride (Sodium Chloride 0.9% 2.5 Ml Syringe) 2.5 ml FLUSH ASDIRECTED PRN PRN Reason: Keep Vein Open Last Admin: 08/23/21 21:33 Dose: 2.5 ml Documented by: Discontinued Medications Iopamidol (Iopamidol 755 Mg/Ml 100 Ml Bottle) 100 ml IVPUSH ONETIME ONE Stop: 08/23/21 22:27 Last Admin: 08/23/21 22:40 Dose: 100 ml Documented by: - Exam General: Alert, Oriented, Cooperative HEENT: Mucous Membr. Moist/[place] Lungs: Clear to Auscultation Cardiovascular: Regular Rate, Regular Rhythm, No Murmurs GI/Abdominal Exam: Normal Bowel Sounds, Soft, Non-Tender, No Organomegaly - Patient Data Lab Results Last 24 hrs: Laboratory Results - last 24 hr 08/25/21 08/25/21 Range/Units 05:04 05:04 WBC 10.98 (4.0-11.0) K/uL RBC 4.37 L (4.50-5.90) M/uL Hgb 13.5 (13.0-17.0) g/dL Hct 39.9 (38.0-50.0) % MCV 91.3 (80.0-98.0) fL MCH 30.9 (27.0-32.0) pg MCHC 33.8 (31.0-37.0) g/dL RDW Std Deviation 42.1 (28.0-62.0) fl RDW Coeff of Jessie 13 (11.0-15.0) % Plt Count 536 H (150-400) K/uL MPV 8.90 (7.40-12.00) fL Neut % (Auto) 79.6 (48.0-80.0) % Lymph % (Auto) 9.6 L (16.0-40.0) % [place] % (Auto) 10.2 (0.0-15.0) % Eos % (Auto) 0.4 (0.0-7.0) % Baso % (Auto) 0.2 (0.0-1.5) % Neut # (Auto) 8.8 H (1.4-5.7) K/uL Lymph # (Auto) 1.1 (0.6-2.4) K/uL [place] # (Auto) 1.1 H (0.0-0.8) K/uL Eos # (Auto) 0.0 (0.0-0.7) K/uL Baso # (Auto) 0.0 (0.0-0.1) K/uL Sodium 139 (136-148) mmol/L Potassium 4.9 (3.5-5.1) mmol/L Chloride 103 (98-107) mmol/L Carbon Dioxide 28.3 (21.0-32.0) mmol/L BUN 14 (7.0-18.0) mg/dL Creatinine 1.2 (0.8-1.3) mg/dL Est Cr Clr Drug Dosing 66.50 mL/min Estimated GFR (MDRD) > 60.0 ml/min Glucose 107 H (74-106) mg/dL Calcium 7.8 L (8.5-10.1) mg/dL Total Bilirubin 0.2 (0.2-1.0) mg/dL AST 24 (15-37) IU/L ALT 45 (14-63) IU/L Alkaline Phosphatase 131 H (46-116) U/L Total Protein 5.6 L (6.4-8.2) g/dL Albumin 1.9 L (3.4-5.0) g/dL Globulin 3.7 (2.6-4.0) g/dL Albumin/Globulin Ratio 0.5 L (0.9-1.6) Result Diagrams: 08/25/21 05:04 08/25/21 05:04 Antione Results Last 24 hrs: Microbiology 08/24/21 02:07 Gram Stain - Final Pleural Fluid - Pleural Cavity, Unspecified 08/23/21 21:30 Aerobic Blood Culture - Preliminary Blood - Venous - Lab Draw NO GROWTH AFTER 1 DAY Anaerobic Blood Culture - Preliminary NO GROWTH AFTER 1 DAY 08/23/21 21:16 Aerobic Blood Culture - Preliminary Blood - Venous NO GROWTH AFTER 1 DAY Anaerobic Blood Culture - Preliminary NO GROWTH AFTER 1 DAY Sepsis Event Note - Evaluation Sepsis Screening Result: No Definite Risk - Focused Exam Vital Signs: Vital Signs Temp Pulse Resp BP Pulse Ox 08/25/21 15:31 97.1 F 68 20 120/77 93 L 08/25/21 07:44 97.7 F 112 H 22 H 116/72 97 - Problem List & Annotations (1) Dyspnea SNOMED Code(s): 959638109 Code(s): R06.00 - DYSPNEA, UNSPECIFIED Status: Acute Current Visit: Yes Qualifiers: Dyspnea type: dyspnea on exertion Qualified Code(s): R06.00 - Dyspnea, unspecified (2) Pleural effusion SNOMED Code(s): 11841474 Code(s): J90 - PLEURAL EFFUSION, NOT ELSEWHERE CLASSIFIED Status: Acute Current Visit: Yes (3) Pulmonary mass SNOMED Code(s): 880474284 Code(s): R91.8 - OTHER NONSPECIFIC ABNORMAL FINDING OF LUNG FIELD Status: Acute Current Visit: Yes - Problem List Review Problem List Initiated/Reviewed/Updated: Yes - My Orders Last 24 Hours: My Active Orders 08/25/21 09:21 Albuterol/Ipratropium [DuoNeb 3.0-0.5 MG/3 ML] 3 ml NEB Q4HRRT PRN 08/25/21 09:22 RT Aerosol Therapy [RC] ASDIRECTED 08/26/21 05:11 CBC WITH AUTO DIFF [HEME] AM CMP [COMPREHENSIVE METABOLIC PN,CMP] [CHEM] AM 08/27/21 05:11 CBC WITH AUTO DIFF [HEME] AM CMP [COMPREHENSIVE METABOLIC PN,CMP] [CHEM] AM 08/28/21 05:11 CBC WITH AUTO DIFF [HEME] AM CMP [COMPREHENSIVE METABOLIC PN,CMP] [CHEM] AM 08/29/21 05:11 CBC WITH AUTO DIFF [HEME] AM CMP [COMPREHENSIVE METABOLIC PN,CMP] [CHEM] AM - Plan Plan:: Admit the patient to the medical floor, vitals per unit routine, activity up ad fernando, DVT prophylaxis with SCDs, GI prophylaxis with pantoprazole 40 mg per oral route once a day, regular diet 1. Pleural effusion on the right most likely due to primary lung carcinoma with metastatic disease -1.3 L of bloody fluid was removed from the patient's pleura and has been sent to [facility] for cytology. I spoke with Dr. Wesley Edmonds today who revealed that the results of the studies will return in 3 to 4 days time. I also spoke with interventional radiology and pulmonology in [place]. Dr. Aleman, from IR in [place] revealed that he would look at the images sent from [facility] to [place] and get back to me in regards to future steps. He proposed that we wait for cytology to come back before the patient is tapped again, and that he would place a Pleural catheter into the pleural space to promote drainage. I also spoke to from pulmonology who would like to review the patient's images, and then will discuss a possible bronchoscope with biopsy procedure with our team. There is also a team of interventional radiologists who come to the hospital here in [place] on Tuesdays and Wednesdays who can see the patient and tap him if necessary. Right now the tapping procedure for the patient is urgent but not emergent. I will discuss these different options with the patient and his family today, and proceed with their wishes. With the patient at bedside, I brought up that he may require chemotherapy and/or radiation for his lung carcinoma, however he has declined any type of cancer treatment besides pleural catheter placement. -Daily CBC/CMP's. 2. Cough -For the patient's cough we have ordered Robitussin on an as-needed basis. -Duo-neb treatment is on board for shortness of breath related to cough
[2021-08-26 07:19] LABS: BLOOD UREA NITROGEN,BUN 12 mg/dL (7.0-18.0); CARBON DIOXIDE,CO2 29.7 mmol/L (21.0-32.0); CHLORIDE,CL 100 mmol/L (98-107); GLUCOSE RANDOM 96 mg/dL (74-106); POTASSIUM,K 5.2 mmol/L (3.5-5.1); SODIUM,NA 138 mmol/L (136-148)
[2021-08-26] MEDS: Pantoprazole 40 MG Tab.CR PO SCH (09:46)
--- NOTE | 2021-08-26 15:41 | PCM.DCSUM1 ---
<Mihai Grier - Last Filed: 08/26/21 15:27> Discharge Summary - Hospital Course Free Text/Narrative:: The patient is a 55-year-old male on day 3 of service, who has no significant past medical history, who was admitted to the hospital due to a large pleural effusion on the right side which had to be removed via thoracentesis. Thoracentesis revealed a 1.3 L of bloody cloudy fluid which was sent off for analysis including LDH, protein, glucose, culture and Gram stain, and cytology. Cytology has yet to return and is currently being done in [place]. In evaluating the pleural fluid through calculations based on blood and pleural fluid protein level, a calculation of 4/5.6 = 0.71 was estimated, meaning what we are looking at is an exudate. In regards to this patient, a chest x-ray and CT revealed multiple pulmonary nodules which points towards a diagnosis of lung cancer. However we will wait for cytology to come back to confirm this diagnosis. Even though the patient was tapped and fluid was removed from his pleural space, he requires additional thoracentesis procedures. Upon discharge, on 08/30/2021 the patient will have to return to the hospital to see interventional radiologist, Dr. Gifford to be tapped once again. Subsequent to all this happening, I had a chance to speak with the interventional radiologist in [place], Dr. Aleman and physical instructor in [place], Dr. Rashid, about this patient's case while he was in hospital. Both physicians are willing to see the patient on an outpatient basis to have either a pleural catheter placed or biopsy done; this once the cytology of his pleural fluid has returned and it is confirmed that he does indeed have lung cancer. I have become the patient's new PCP and will follow up with him in 1 to 2 weeks time after his second tapping procedure has been completed and the original cytology returns. Moving forward there will be a collaboration of all the physicians mentioned in this discharge summary and myself in this patient's care. Upon interview today with Mr. Vasquez, the symptoms of shortness of breath, cough, and chest discomfort that the patient initially presented with have significantly improved. He is now ready to be discharged and will be followed closely. - Discharge Data Discharge Date: 08/26/21 Discharge Disposition: Home, Self-Care 01 Condition: Good - Referral to Home Health Primary Care Physician: PCP None - Discharge Diagnosis/Problem(s) (1) Dyspnea SNOMED Code(s): 140906900 ICD Code: R06.00 - DYSPNEA, UNSPECIFIED Status: Acute Qualifiers: Dyspnea type: dyspnea on exertion Qualified Code(s): R06.00 - Dyspnea, unspecified (2) Pleural effusion SNOMED Code(s): 20765939 ICD Code: J90 - PLEURAL EFFUSION, NOT ELSEWHERE CLASSIFIED Status: Acute (3) Pulmonary mass SNOMED Code(s): 411918131 ICD Code: R91.8 - OTHER NONSPECIFIC ABNORMAL FINDING OF LUNG FIELD Status: Acute - Patient Instructions Diet: Regular Diet as Tolerated Activity: As Tolerated Showering/Bathing: May Shower Other/Special Instructions: -If you experience chest pain, palpitations, respiratory difficulty, coughing up blood, to return to the hospital as soon as possible. -Do not attempt to perform any activities that will aggravate shortness of breath. -Make sure to follow-up with your PCP, Dr. Grier when your appointment has been set up for you. -Attend interventional radiologist appointment with Dr. Gifford on 08/30/2021 - Discharge Plan Home Medications: Home Meds Prednisone [IMW: predniSONE] 40 mg PO WITHBREAKFAST 5 Days #5 tab 10/10/17 [Rx] Patient Handouts: Pleural Effusion Forms: ED Department Discharge Referrals: Mihai Grier MD [Resident] - 09/08/21 2:30 pm - Discharge Summary/Plan Comment DC Time >30 min.: Yes Total # of Minutes for Discharge Time: 35 minutes - Review of Systems General: Denies: Fever, Weakness, Fatigue HEENT: Denies: Headaches, Sore Throat Pulmonary: Reports: Cough. Denies: Shortness of Breath, Pleuritic Chest Pain, Sputum Cardiovascular: Denies: Chest Pain, Palpitations, Dyspnea on Exertion Gastrointestinal: Denies: Abdominal Pain Genitourinary: Denies: Dysuria - Patient Data Vitals - Most Recent: Last Vital Signs Temp 98.2 F 08/26/21 12:34 Pulse 116 H 08/26/21 08:00 Resp 20 08/26/21 12:34 BP 103/72 08/26/21 12:34 Pulse Ox 93 L 08/26/21 12:34 Weight - Most Recent: 86.092 kg I&O - Last 24 hours: Intake & Output 08/26/21 08/26/21 08/26/21 06:59 14:59 22:59 Intake Total 650 840 Output Total 860 Balance -210 840 Lab Results - Last 24 hrs: Laboratory Results - last 24 hr 08/26/21 08/26/21 08/26/21 Range/Units 05:35 05:35 14:01 WBC 11.71 H (4.0-11.0) K/uL RBC 4.59 (4.50-5.90) M/uL Hgb 14.2 (13.0-17.0) g/dL Hct 41.5 (38.0-50.0) % MCV 90.4 (80.0-98.0) fL MCH 30.9 (27.0-32.0) pg MCHC 34.2 (31.0-37.0) g/dL RDW Std Deviation 43.9 (28.0-62.0) fl RDW Coeff of Jessie 13 (11.0-15.0) % Plt Count 528 H (150-400) K/uL MPV 9.10 (7.40-12.00) fL Neut % (Auto) 78.6 (48.0-80.0) % Lymph % (Auto) 10.6 L (16.0-40.0) % [place] % (Auto) 10.2 (0.0-15.0) % Eos % (Auto) 0.3 (0.0-7.0) % Baso % (Auto) 0.3 (0.0-1.5) % Neut # (Auto) 9.2 H (1.4-5.7) K/uL Lymph # (Auto) 1.2 (0.6-2.4) K/uL [place] # (Auto) 1.2 H (0.0-0.8) K/uL Eos # (Auto) 0.0 (0.0-0.7) K/uL Baso # (Auto) 0.0 (0.0-0.1) K/uL Nucleated RBC % 0.0 /100WBC Nucleated RBCs # 0 K/uL INR 1.05 Sodium 138 (136-148) mmol/L Potassium 5.2 H (3.5-5.1) mmol/L Chloride 100 (98-107) mmol/L Carbon Dioxide 29.7 (21.0-32.0) mmol/L BUN 12 (7.0-18.0) mg/dL Creatinine 1.1 (0.8-1.3) mg/dL Est Cr Clr Drug Dosing 72.55 mL/min Estimated GFR (MDRD) > 60.0 ml/min Glucose 96 (74-106) mg/dL Calcium 8.0 L (8.5-10.1) mg/dL Total Bilirubin 0.3 (0.2-1.0) mg/dL AST 25 (15-37) IU/L ALT 41 (14-63) IU/L Alkaline Phosphatase 131 H (46-116) U/L Total Protein 5.6 L (6.4-8.2) g/dL Albumin 1.8 L (3.4-5.0) g/dL Globulin 3.8 (2.6-4.0) g/dL Albumin/Globulin Ratio 0.5 L (0.9-1.6) ALHAJI Results - Last 24 hrs: Microbiology 08/24/21 02:07 Miscellaneous Reference Culture - Preliminary Pleural Fluid - Pleural Cavity, Unspecified Gram Stain - Final 08/23/21 21:30 Aerobic Blood Culture - Preliminary Blood - Venous - Lab Draw NO GROWTH AFTER 2 DAYS Anaerobic Blood Culture - Preliminary NO GROWTH AFTER 2 DAYS 08/23/21 21:16 Aerobic Blood Culture - Preliminary Blood - Venous NO GROWTH AFTER 2 DAYS Anaerobic Blood Culture - Preliminary NO GROWTH AFTER 2 DAYS Med Orders - Current: Current Medications Discontinued Medications Acetaminophen (Acetaminophen 325 Mg Tab) 650 mg PO Q6H PRN PRN Reason: Chest Pain Last Admin: 08/24/21 14:54 Dose: 650 mg Documented by: Albuterol/Ipratropium (Albuterol/Ipratropium 3.0-0.5 Mg/3 Ml Neb Soln) 3 ml NEB Q4HRRT PRN PRN Reason: Shortness of Breath Last Admin: 08/25/21 18:44 Dose: 3 ml Documented by: Guaifenesin (Guaifenesin 100 Mg/5 Ml Soln 5 Ml Ud Cup) 200 mg PO Q4H PRN PRN Reason: Cough Last Admin: 08/25/21 21:06 Dose: 200 mg Documented by: Iopamidol (Iopamidol 755 Mg/Ml 100 Ml Bottle) 100 ml IVPUSH ONETIME ONE Stop: 08/23/21 22:27 Last Admin: 08/23/21 22:40 Dose: 100 ml Documented by: Pantoprazole Sodium (Pantoprazole 40 Mg Tab.Cr) 40 mg PO DAILY INDIRA Last Admin: 08/26/21 09:46 Dose: 40 mg Documented by: Sodium Chloride (Sodium Chloride 0.9% 10 Ml Syringe) 10 ml FLUSH ASDIRECTED PRN PRN Reason: Keep Vein Open Last Admin: 08/23/21 21:33 Dose: 10 ml Documented by: Sodium Chloride (Sodium Chloride 0.9% 2.5 Ml Syringe) 2.5 ml FLUSH ASDIRECTED PRN PRN Reason: Keep Vein Open Last Admin: 08/23/21 21:33 Dose: 2.5 ml Documented by: - Exam General: Reports: Oriented, Cooperative HEENT: Reports: Mucous Membr. Moist/[place] Neck: Reports: Trachea Midline Lungs: Reports: Clear to Auscultation Cardiovascular: Reports: Regular Rate, Regular Rhythm, No Murmurs GI/Abdominal Exam: Normal Bowel Sounds, Soft, Non-Tender, No Organomegaly Discharge Operative/Procedures - Procedures Performed Thoracentesis Indication: pleural effusion, pleural fluid analysis <Antony Palomino - Last Filed: 08/27/21 15:41> Discharge Summary - Hospital Course Free Text/Narrative:: I have seen and evaluated the patient and agree with the residents note unless specified in my note - Referral to Home Health Primary Care Physician: PCP None - Patient Data Vitals - Most Recent: Last Vital Signs Temp 36.8 C 08/26/21 12:34 Pulse 116 H 08/26/21 08:00 Resp 20 08/26/21 12:34 BP 103/72 08/26/21 12:34 Pulse Ox 93 L 08/26/21 12:34 ALHAJI Results - Last 24 hrs: Microbiology 08/23/21 21:30 Aerobic Blood Culture - Preliminary Blood - Venous - Lab Draw NO GROWTH AFTER 3 DAYS Anaerobic Blood Culture - Preliminary NO GROWTH AFTER 3 DAYS 08/23/21 21:16 Aerobic Blood Culture - Preliminary Blood - Venous NO GROWTH AFTER 3 DAYS Anaerobic Blood Culture - Preliminary NO GROWTH AFTER 3 DAYS Med Orders - Current: Current Medications Discontinued Medications Acetaminophen (Acetaminophen 325 Mg Tab) 650 mg PO Q6H PRN PRN Reason: Chest Pain Last Admin: 08/24/21 14:54 Dose: 650 mg Documented by: Albuterol/Ipratropium (Albuterol/Ipratropium 3.0-0.5 Mg/3 Ml Neb Soln) 3 ml NEB Q4HRRT PRN PRN Reason: Shortness of Breath Last Admin: 08/25/21 18:44 Dose: 3 ml Documented by: Guaifenesin (Guaifenesin 100 Mg/5 Ml Soln 5 Ml Ud Cup) 200 mg PO Q4H PRN PRN Reason: Cough Last Admin: 08/25/21 21:06 Dose: 200 mg Documented by: Iopamidol (Iopamidol 755 Mg/Ml 100 Ml Bottle) 100 ml IVPUSH ONETIME ONE Stop: 08/23/21 22:27 Last Admin: 08/23/21 22:40 Dose: 100 ml Documented by: Pantoprazole Sodium (Pantoprazole 40 Mg Tab.Cr) 40 mg PO DAILY INDIRA Last Admin: 08/26/21 09:46 Dose: 40 mg Documented by: Sodium Chloride (Sodium Chloride 0.9% 10 Ml Syringe) 10 ml FLUSH ASDIRECTED PRN PRN Reason: Keep Vein Open Last Admin: 08/23/21 21:33 Dose: 10 ml Documented by: Sodium Chloride (Sodium Chloride 0.9% 2.5 Ml Syringe) 2.5 ml FLUSH ASDIRECTED PRN PRN Reason: Keep Vein Open Last Admin: 08/23/21 21:33 Dose: 2.5 ml Documented by:
--- NOTE | 2021-08-26 16:12 | PCM.SN.2 ---
- Free Text/Narrative Note: Mr. Vasquez had a thoracentesis procedure done on his right lung for pleural effusion when he first presented to the emergency department. His tapping procedure revealed 1.3 L of bloody cloudy fluid which had multiple tests done on it including protein, LDH, Gram stain and culture, glucose, and cytology which is yet to return. Subsequently the patient also had imaging done including a chest x-ray and CT scan of the chest which revealed multiple pulmonary nodules pointing towards a diagnosis of primary lung carcinoma with metastasis. This however cannot be confirmed until cytology returns and tells us what type of cells predominate in the pleural fluid. I had a chance to speak with Dr. Wesley Edmonds from pathology who confirmed that cytology was sent to [place] and would return in 3 to 5 days. Due to the nature and size of the pleural effusion, the patient will require additional tapping procedures to evacuate fluid from his right lung. The second tapping procedure will be done by Dr. Gifford from [facility] radiology on 08/30/2021 at 3:30 PM. Suhas from radiology was involved in securing this appointment and I, Dr. Palomino Lead Military Analyst at [facility], and the rest of the medicine service appreciate her efforts. In regards to the cause of this pleural effusion, lights criteria through calculation revealed that we have an exudate within Mr. Vasquez's right lung. A more precise calculation would be a pleural protein level of 4.0 divided by serum protein level of 5.6 which equals 0.71, which is a level over 0.5, which points to an exudate and distinguishes it from a transudate. The most likely cause of this exudate is lung cancer, but this cannot be confirmed until we have cytology back. I spoke with interventional radiologist in [place], Dr. Aleman about this patient's case. He is willing to see this patient in the future and perform tapping procedures as well as placement of a pleural catheter which would drain additional collections of fluid within the patient's right lung. This catheter is designed according to Dr. Aleman to be taken home and help drain fluid from the pleural space whenever it may start to accumulate. Dr. Aleman suggested I wait for cytology to return before contacting him with results and future management for this patient. I also spoke to digital forensics investigator in [place], Dr. Rashid who is willing to be involved in this patient's case. He is waiting for images from the hospital here in [place] to be transferred over to the computer system at [facility] in [place]. Eventually the images were sent over and have been uploaded by Kiran of radiology at [facility]. When speaking to Dr. Rashid, he suggested waiting for cytology before additional treatment regimens a re approached. If the cytology comes back as cancerous, he will perform a bronchoscope with a lung biopsy and then send it off for analysis. All these treatments by both doctors in [place], would be on an outpatient basis unless it was absolutely necessary for inpatient admission to be done. I also had a chance to talk to the patient's daughter, Jeni in [place], who is oncological pharmacist to discuss her fathers health and the possibility of a lung biopsy if his cytology returns and shows malignant cells. Both her and the patient are in agreement with having a bronchoscope with biopsy done if necessary. I have become the new PCP for Mr. Vasquez, and will collaborate with all the physicians mentioned in this note with respect to this patient's care and future management. I have an appointment with Mr. Vasquez on 09/08/2021 and will address the matter then. Time Documentation
== END 2021-08-26 14:44 | disposition home or self-care (01) ==
LOC: MW.ED 19:55 → MW.MS 08-24 00:29
PROVIDERS: ADMIT Internal Medicine; ATTEND Internal Medicine
DX: J90 Pleural effusion, not elsewhere classified (principal); R06.02 Shortness of breath; R91.8 Other nonspecific abnormal finding of lung field; Z79.899 Other long term (current) drug therapy; Z87.891 Personal history of nicotine dependence; Z20.822 Contact with and (suspected) exposure to COVID-19
CPT/HCPCS: 0240U; 36415; 71045; 71046; 71275; 80048; 80053; 81003; 82945; 83615; 83690; 84157; 84484; 85025; 85610; 87040; 87070; 87205; 89050; 93005; 94640; 99285; A9270; Q9967; G0378; J7620-GY